=== PATIENT | male | born 1935 | race Caucasian/White ===

== ENCOUNTER → 2017-10-23 | Day surgery (SDC) | payer MEDICARE, BC ==
[~2017-10-23] MED LIST: Brimonidine 0.2% Ophth Soln 5 ML Bottle EYELF SCH; Phenylephrine 2.5% Ophth Soln 2 ML Bot EYELF SCH; Tropicamide 1% Ophth Soln 3 ML Bottle EYELF SCH
[2017-10-23 12:30] VITALS: BP 137/81
== END ==
LOC: JD.SDS 10:38
PROVIDERS: ATTEND Ophthalmology
DX: H26.492 Other secondary cataract, left eye (principal); H21.542 Posterior synechiae (iris), left eye; I10 Essential (primary) hypertension; H02.831 Dermatochalasis of right upper eyelid; H02.834 Dermatochalasis of left upper eyelid; H16.223 Keratoconjunctivitis sicca, not specified as Sjogren's, bilateral; H16.103 Unspecified superficial keratitis, bilateral; Z87.891 Personal history of nicotine dependence; Z79.899 Other long term (current) drug therapy; Z98.41 Cataract extraction status, right eye; Z98.42 Cataract extraction status, left eye; Z96.1 Presence of intraocular lens

== ENCOUNTER 2019-08-27 15:32 | Emergency (ER) | payer MEDICARE, BC ==
[2019-08-27 16:30] VITALS: BP 184/90; PULSE 60
[2019-08-27] MEDS ORDERED: Sodium Chloride 0.9% 10 ML Syringe FLUSH PRN (16:34)
--- NOTE | 2019-08-27 16:36 | EDM.PDOC ---
ED HPI GENERAL MEDICAL PROBLEM - General Chief Complaint: Genitourinary Problem Stated Complaint: BACK PAIN,VOMITING AND NAUSEA Time Seen by Provider: 08/27/19 16:20 Source of Information: Reports: Patient History Limitations: Reports: No Limitations - History of Present Illness INITIAL COMMENTS - FREE TEXT/NARRATIVE: Patient is an 84-year-old male who presents to the emergency department with complaints of acute onset of left-sided flank pain and nausea around 10:00 this morning. He states prior to this time he was feeling well. He describes the pain as sharp. He did not vomit, however he had a couple episodes of dry heaves. He states that while he was in the waiting room, his pain resolved. Denies any obvious blood in his urine. He does have a history of kidney stones , the last being approximately 5 years ago. He denies any fever or chills. He is not having any pain at this time. Denies nausea at this time. 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 He has a follow-up appointment with his oncologist in September. Left Flank Pain Score (Numeric/FACES): 5 - Related Data Allergies Allergy/AdvReac Type Severity Reaction Status Date / Time No Known Allergies Allergy Verified 10/22/17 12:34 Home Meds: Home Meds Irbesartan [Avapro] 1 tab PO DAILY 11/25/13 [History] Tamsulosin HCl 1 cap PO QAM 11/25/13 [History] Acetaminophen/HYDROcodone [[place] 325-5 MG] 1 tab PO Q4H PRN #10 tablet 08/27/19 [Rx] Ondansetron [Zofran ODT] 4 mg PO Q6H PRN #10 tab.dis 08/27/19 [Rx] Past Medical History HEENT History: Reports: Cataract, Impaired Vision Cardiovascular History: Reports: Hypertension Genitourinary History: Reports: BPH, Renal Calculus - Past Surgical History HEENT Surgical History: Reports: Cataract Surgery Social & Family History - Tobacco Use Smoking Status *Q: Former Smoker Used Tobacco, but Quit: Yes Month/Year Tobacco Last Used: 1979 - Recreational Drug Use Recreational Drug Use: No ED ROS GENERAL - Review of Systems Review Of Systems: Comprehensive ROS is negative, except as noted in HPI. ED EXAM, GI/ABD - Physical Exam Exam: See Below Exam Limited By: No Limitations General Appearance: Alert, WD/WN, No Apparent Distress Respiratory/Chest: No Respiratory Distress, Lungs Clear, Normal Breath Sounds, No Accessory Muscle Use, Chest Non-Tender Cardiovascular: Normal Peripheral Pulses, Regular Rate, Rhythm, No Edema, No Gallop, No JVD, No Murmur, No Rub GI/Abdominal Exam: Normal Bowel Sounds, Soft, Non-Tender, No Organomegaly, No Distention, No Abnormal Bruit, No Mass, Pelvis Stable Back Exam: Normal Inspection, Full Range of Motion. No: CVA Tenderness (L), CVA Tenderness (R) Neurological: Alert, Oriented, CN II-XII Intact, Normal Cognition, Normal Gait, Normal Reflexes, No Motor/Sensory Deficits Psychiatric: Normal Affect, Normal Mood Skin Exam: Warm, Dry, Intact, Normal Color, No Rash Course - Vital Signs Last Recorded V/S: Last Vital Signs Temp 97.4 F 08/27/19 16:22 Pulse 60 08/27/19 16:22 Resp 16 08/27/19 16:22 BP 184/90 H 08/27/19 16:22 Pulse Ox 97 08/27/19 16:22 - Orders/Labs/Meds Orders: Active Orders 24 hr Category Date Time Status Peripheral IV Care [RC] . DIRECTED Care 08/27/19 16:34 Active Peripheral IV Insertion Adult [OM.PC] Stat Oth 08/27/19 16:34 Ordered Labs: Laboratory Tests 08/27/19 08/27/19 08/27/19 Range/Units 17:00 17:00 17:59 WBC 31.37 H (4.23-9.07) K/mm3 RBC 5.33 (4.63-6.08) M/mm3 Hgb 16.2 (13.7-17.5) gm/dl Hct 48.0 (40.1-51.0) % MCV 90.1 (79.0-92.2) fl MCH 30.4 (25.7-32.2) pg MCHC 33.8 (32.2-35.5) g/dl RDW Std Deviation 45.6 H (35.1-43.9) fL Plt Count 138 L (163-337) K/mm3 MPV 10.6 (9.4-12.3) fl Neut % (Auto) 24.8 L (34.0-67.9) % Lymph % (Auto) 70.6 H (21.8-53.1) % [place] % (Auto) 3.6 L (5.3-12.2) % Eos % (Auto) 0.5 L (0.8-7.0) Baso % (Auto) 0.2 (0.1-1.2) % Neut # (Auto) 7.77 H (1.78-5.38) K/mm3 Lymph # (Auto) 22.16 H (1.32-3.57) K/mm3 Fleming # (Auto) 1.12 H (0.30-0.82) K/mm3 Eos # (Auto) 0.16 (0.04-0.54) K/mm3 Baso # (Auto) 0.07 (0.01-0.08) K/mm3 Manual Slide Review Abnormal smear Sodium 139 (136-145) mEq/L Potassium 4.4 (3.5-5.1) mEq/L Chloride 103 (98-107) mEq/L Carbon Dioxide 24 (21-32) mEq/L Anion Gap 16.4 H (5-15) BUN 12 (7-18) mg/dL Creatinine 1.6 H (0.7-1.3) mg/dL Est Cr Clr Drug Dosing 39.07 mL/min Estimated GFR (MDRD) 42 (>60) mL/min BUN/Creatinine Ratio 7.5 L (14-18) Glucose 130 H (83-115) mg/dL Calcium 8.8 (8.5-10.1) mg/dL Total Bilirubin 0.7 (0.2-1.0) mg/dL AST 34 (15-37) U/L ALT 48 (16-63) U/L Alkaline Phosphatase 98 (46-116) U/L C-Reactive Protein <0.2 (<1.0) mg/dL Total Protein 6.8 (6.4-8.2) g/dl Albumin 3.9 (3.4-5.0) g/dl Globulin 2.9 gm/dL Albumin/Globulin Ratio 1.3 (1-2) Urine Color Light yellow (Yellow) Urine Appearance Clear (Clear) Urine pH 6.0 (5.0-8.0) Ur Specific [place] 1.020 (1.005-1.030) Urine Protein Negative (Negative) Urine Glucose (UA) Negative (Negative) Urine Ketones Negative (Negative) Urine Occult Blood 1+ H (Negative) Urine Nitrite Negative (Negative) Urine Bilirubin Negative (Negative) Urine Urobilinogen 0.2 (0.2-1.0) Ur Leukocyte Esterase Negative (Negative) Urine RBC 0-5 (0-5) /hpf Urine WBC 0-5 (0-5) /hpf Ur Squamous Epith Cells Not seen (0-5) /hpf Urine Bacteria Occasional (FEW) /hpf Urine Mucus Not seen (FEW) /hpf Meds: Medications Discontinued Medications Generic Name Dose Route Start Last Admin Trade Name Freq PRN Reason Stop Dose Admin Acetaminophen 650 mg 08/27/19 17:56 08/27/19 18:14 Tylenol PO 08/27/19 17:57 650 mg NOW ONE Administration Hydrocodone Bitart/Acetaminophen 1 tab 08/27/19 18:28 08/27/19 18:44 [place] 325-5 Mg PO 08/27/19 18:29 1 tab ONETIME ONE Administration Sodium Chloride 1,000 mls @ 999 mls/hr 08/27/19 16:45 Normal Saline IV ASDIRECTED BRANDY Sodium Chloride 10 ml 08/27/19 16:34 Saline Flush FLUSH ASDIRECTED PRN Keep Vein Open - Re-Assessments/Exams Free Text/Narrative Re-Assessment/Exam: 08/27/19 1900 Hematology was significant for WBC elevated at 31.37 with marked lymphocytosis. This is consistent with his history of CLL. Anion gap slightly elevated at 16.4, creatinine 1.6. Urinalysis was positive for 1+ occult blood. Negative for any signs of infection. Patient did have return of pain when he ambulated to the bathroom. Ordered [place] x1 and Tylenol [address] of the abdomen pelvis showed a 4.7 mm stone in the left ureter, most 2 nonobstructing calculi within the lower pole of each kidney. Discussed these findings with the patient. We will discharge him home with a urine strainer and a prescription for [place] and Zofran. He is already on Flomax. Discharge instructions as documented. Departure - Departure Time of Disposition: 19:07 Disposition: Home, Self-Care 01 Condition: Good Clinical Impression: Kidney stone - Discharge Information *PRESCRIPTION DRUG MONITORING PROGRAM REVIEWED*: Yes *COPY OF PRESCRIPTION DRUG MONITORING REPORT IN PATIENT BRIGIDO: No Prescriptions: Acetaminophen/HYDROcodone [[place] 325-5 MG] 1 tab PO Q4H PRN #10 tablet PRN Reason: Pain Ondansetron [Zofran ODT] 4 mg PO Q6H PRN #10 tab.dis PRN Reason: Nausea Instructions: Kidney Stones, [id number] Referrals: Jennifer Duffy [facility]OVAL SPECIALIST [Primary Care Provider] - Forms: ED Department Discharge Additional Instructions: You were seen in the emergency department today for left-sided flank pain and nausea. Your work-up included blood work, urinalysis, and a CT of your abdomen pelvis. Work-up indicated that you have a 4 mm kidney stone in your left ureter. This is likely the cause of your symptoms. Based on the size of the stone, it is likely that you will be able to pass this without any intervention. You have been provided a strainer for your urine. Use this until you pass the stone. Recommend that you use [id number] Tylenol as needed for the pain. For pain not relieved by this measure, a prescription for [place] has been provided. Do not exceed a total of 4000 mg of Tylenol in 1 day. Be aware that there is 325 mg of Tylenol in each tablet of [place]. Do not drive or operate machinery after taking the [place] as it can be sedating. A prescription for Zofran for nausea has also been provided to you. Use this medication as prescribed. As we discussed, if you do not pass the stone over the course of the next week, I would recommend that you follow-up with your primary care provider to be rescanned to ensure that the stone is not lodged in the ureter. If you should experience any worsening symptoms, please not hesitate to return to the emergency department. Sepsis Event Note - Evaluation Sepsis Screening Result: No Definite Risk - Focused Exam Date Exam was Performed: 08/28/19 Time Exam was Performed: 11:58 - My Orders Last 24 Hours: My Active Orders 08/27/19 16:34 Peripheral IV Care [RC] . DIRECTED Peripheral IV Insertion Adult [OM.PC] Stat - Assessment/Plan Last 24 Hours: My Active Orders 08/27/19 16:34 Peripheral IV Care [RC] . DIRECTED Peripheral IV Insertion Adult [OM.PC] Stat
[2019-08-27] MEDS ORDERED: Sodium Chloride 0.9% 1,000 ML IV SCH (16:45)
[2019-08-27] MEDS ORDERED: Acetaminophen 325 MG Tab PO ONE (17:56)
[2019-08-27] MEDS ORDERED: Acetaminophen/HYDROcodone 325-5 MG Tab PO ONE (18:28)
--- NOTE | 2019-08-27 22:26 | CT ---
CT abdomen and pelvis Technique: Multiple axial sections were obtained from above the dome of the diaphragm inferiorly through the pubic symphysis. Intravenous and oral contrast not utilized. Study has been performed as a ureteral stone protocol. Findings: Proximal left ureteral stone is seen measuring approximately 4.7 mm. This causes proximal dilatation of the left kidney collecting system. No other abnormal calcifications are seen along the course of the ureters. Small nonobstructing calculus is noted within the lower pole of both kidneys. Several cysts are seen within the left kidney. Visualized lung bases show nothing acute. Noncontrast appearance of the liver and spleen shows no discrete abnormality. Adrenal glands show no nodule. Pancreas shows no abnormality. Gallbladder contains no calcified gallstones. Aorta shows atherosclerotic change which continues into the iliac vessels. No retroperitoneal adenopathy or mesenteric abnormalities are seen. No pelvic mass or adenopathy is seen. Appendix cannot be visualized. No free fluid or inflammatory change is appreciated. Bone window settings were reviewed which shows no acute osseous finding. 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 Impression: 1. 4.7 mm obstructing stone within the proximal left ureter. 2. 2 small nonobstructing calculi within the lower pole of each kidney. 3. Other findings believed to be incidental as well as nonacute as noted above. Diagnostic code #3 This report was dictated in MDT
== END 2019-08-27 19:20 | disposition home or self-care (01) ==
LOC: JD.ED 15:32
DX: N20.2 Calculus of kidney with calculus of ureter (principal); I10 Essential (primary) hypertension; Z87.891 Personal history of nicotine dependence; Z79.899 Other long term (current) drug therapy
CPT/HCPCS: 36415; 74176; 80053; 81001; 85025; 86140; 99284; A9270; 99283

== ENCOUNTER 2019-08-31 10:09 | Emergency (ER) | payer MEDICARE, BC ==
[2019-08-31 10:23] VITALS: BP 149/83; PULSE 55
[2019-08-31] MEDS ORDERED: fentaNYL 100 MCG/2 ML SDV IVPUSH ONE ×2 (10:44→12:32)
[2019-08-31] MEDS ORDERED: Ondansetron 4 MG/2 ML SDV IVPUSH ONE (10:45)
[2019-08-31] MEDS ORDERED: Acetaminophen/HYDROcodone 325-5 MG Tab PO ONE ×2 (10:45→10:46)
--- NOTE | 2019-08-31 10:48 | EDM.PDOC ---
ED HPI GENERAL MEDICAL PROBLEM - General Chief Complaint: Genitourinary Problem Stated Complaint: KIDNEY STONE Time Seen by Provider: 08/31/19 10:35 - History of Present Illness INITIAL COMMENTS - FREE TEXT/NARRATIVE: 84-year-old male presents the emergency room with significant discomfort thought to be related to his kidney stone. Patient was seen here 4 days ago diagnosed with a 4.7 mm proximal left-sided kidney stone. Patient is having significant discomfort with this. He was discharged on hydrocodone he was not started on Flomax however he is already taking Flomax. He was given [place] for discomfort 08/09/2024 1 every 4 hours as needed. His regular provider has given him some more 1 every 6 hours and it is just not working the patient has a significant history of CLL he has follow-up with his oncologist on September 07. Denies any fevers or chills he has no nausea or vomiting but he does not have any appetite he has not eaten much he says he is drinking enough fluids. Left Flank Pain Score (Numeric/FACES): 10 - Related Data Allergies Allergy/AdvReac Type Severity Reaction Status Date / Time No Known Allergies Allergy Verified 08/31/19 10:23 Home Meds: Home Meds Irbesartan [Avapro] 150 mg PO DAILY 11/25/13 [History] Tamsulosin HCl 0.4 mg PO QAM 11/25/13 [History] Acetaminophen/HYDROcodone [[place] 325-5 MG] 1 tab PO Q4H PRN #10 tablet 08/27/19 [Rx] Ondansetron [Zofran ODT] 4 mg PO Q6H PRN #10 tab.dis 08/27/19 [Rx] Past Medical History HEENT History: Reports: Cataract, Impaired Vision Cardiovascular History: Reports: Hypertension Genitourinary History: Reports: BPH, Renal Calculus - Past Surgical History HEENT Surgical History: Reports: Cataract Surgery Social & Family History - Tobacco Use Smoking Status *Q: Never Smoker - Caffeine Use Caffeine Use: Reports: Coffee - Recreational Drug Use Recreational Drug Use: No ED ROS GENERAL - Review of Systems Review Of Systems: See Below Constitutional: Reports: Diaphoresis (He is a little sweaty but he says he is in this way all the time). Denies: Fever, Chills, Night Sweats HEENT: Reports: No Symptoms Respiratory: Reports: No Symptoms Cardiovascular: Reports: No Symptoms Endocrine: Reports: No Symptoms GI/Abdominal: Reports: No Symptoms : Reports: Flank Pain. Denies: Discharge, Dysuria Musculoskeletal: Reports: No Symptoms Skin: Reports: No Symptoms Neurological: Reports: No Symptoms ED EXAM, RENAL/ - Physical Exam Exam: See Below Exam Limited By: No Limitations General Appearance: Alert, No Apparent Distress, Other (Rates his pain at a 10) Head: Atraumatic, Normocephalic Neck: Normal Inspection, Supple, Non-Tender, Full Range of Motion Respiratory/Chest: No Respiratory Distress, Lungs Clear, Normal Breath Sounds Cardiovascular: Regular Rate, Rhythm, No Edema, No Murmur GI/Abdominal: Normal Bowel Sounds, Soft, Other (Is not worsened with palpation) . No: Guarding, Rigid, Rebound Back Exam: Normal Inspection. No: CVA Tenderness (L), CVA Tenderness (R) Extremities: Normal Inspection, No Pedal Edema Course - Vital Signs Last Recorded V/S: Last Vital Signs Temp 36.7 C 08/31/19 10:18 Pulse 55 L 08/31/19 10:18 Resp 14 08/31/19 10:18 BP 149/83 H 08/31/19 10:18 Pulse Ox 94 L 08/31/19 10:18 - Orders/Labs/Meds Orders: Active Orders 24 hr Category Date Time Status UA W/SUSAN RFLX IF INDICATED [URIN] Stat Lab 08/31/19 10:43 Ordered Lactated Ringers [Ringers, Lactated] 1,000 ml Med 08/31/19 11:00 Active IV ASDIRECTED Lactated Ringers [Ringers, Lactated] 1,000 ml Med 08/31/19 11:15 Active IV ASDIRECTED fentaNYL [Sublimaze] Med 08/31/19 12:32 Once 50 mcg IVPUSH ONETIME ONE Medication Orders Lactated Ringer's (Ringers, Lactated) 1,000 mls @ 150 mls/hr IV ASDIRECTED BRANDY Last Admin: 08/31/19 11:08 Dose: 150 mls/hr Lactated Ringer's (Ringers, Lactated) 1,000 mls @ 150 mls/hr IV ASDIRECTED BRANDY Labs: Laboratory Tests 08/31/19 08/31/19 Range/Units 10:40 10:40 WBC 28.03 H (4.23-9.07) K/mm3 RBC 4.98 (4.63-6.08) M/mm3 Hgb 15.2 (13.7-17.5) gm/dl Hct 45.3 (40.1-51.0) % MCV 91.0 (79.0-92.2) fl MCH 30.5 (25.7-32.2) pg MCHC 33.6 (32.2-35.5) g/dl RDW Std Deviation 46.1 H (35.1-43.9) fL Plt Count 151 L (163-337) K/mm3 MPV 10.6 (9.4-12.3) fl Neutrophils % (Manual) 34 L (40-60) % Band Neutrophils % 0 (0-10) % Lymphocytes % (Manual) 59 H (20-40) % Atypical Lymphs % 0 % Monocytes % (Manual) 7 (2-10) % Eosinophils % (Manual) 0 L (0.8-7.0) % Basophils % (Manual) 0 L (0.2-1.2) Platelet Estimate Adequate Plt Morphology Comment RBC Morph Comment Normal Sodium 138 (136-145) mEq/L Potassium 4.4 (3.5-5.1) mEq/L Chloride 102 (98-107) mEq/L Carbon Dioxide 25 (21-32) mEq/L Anion Gap 15.4 H (5-15) BUN 23 H (7-18) mg/dL Creatinine 2.0 H (0.7-1.3) mg/dL Est Cr Clr Drug Dosing 31.26 mL/min Estimated GFR (MDRD) 32 (>60) mL/min BUN/Creatinine Ratio 11.5 L (14-18) Glucose 120 H (83-115) mg/dL Calcium 8.7 (8.5-10.1) mg/dL Meds: Medications Generic Name Dose Route Start Last Admin Trade Name Freq PRN Reason Stop Dose Admin Lactated Ringer's 1,000 mls @ 150 mls/hr 08/31/19 11:00 08/31/19 11:08 Ringers, Lactated IV 150 mls/hr ASDIRECTED BRANDY Administration Lactated Ringer's 1,000 mls @ 150 mls/hr 08/31/19 11:15 Ringers, Lactated IV ASDIRECTED BRANDY Discontinued Medications Generic Name Dose Route Start Last Admin Trade Name Jose PRN Reason Stop Dose Admin Hydrocodone Bitart/Acetaminophen 1 tab 08/31/19 10:45 08/31/19 10:53 [place] 325-5 Mg PO 08/31/19 10:46 1 tab ONETIME ONE Administration Hydrocodone Bitart/Acetaminophen 1 tab 08/31/19 10:46 08/31/19 11:53 [place] 325-5 Mg PO 08/31/19 10:47 1 tab ONETIME ONE Administration Fentanyl 50 mcg 08/31/19 10:44 08/31/19 10:57 Sublimaze IVPUSH 08/31/19 10:45 50 mcg ONETIME ONE Administration Ondansetron HCl 4 mg 08/31/19 10:45 08/31/19 10:55 Zofran IVPUSH 08/31/19 10:46 4 mg ONETIME ONE Administration - Re-Assessments/Exams Free Text/Narrative Re-Assessment/Exam: 08/31/19 12:33 The patient was given 50 mcg of fentanyl and shortly after this received [place] and this was followed up by a second [place] after the first [place] he is feeling pretty good but shortly thereafter his pain returned he was given a second [place] seemed to be doing okay but now again the pain is returned we will give him another 50 mcg of fentanyl I have looked at his labs his creatinine is up to 2. This is little concerning the patient has not been able specimen as of this time. Will discuss with urology. 08/31/19 13:[address] Abernathy, urologist at [facility] in [place]. He recommends transfer to [facility] to the hospitalist service continue IV fluids and pain medication as needed keep n.p.o. the patient last had some cranberry juice around 7:00 this morning and then his sipped water infrequently during the day. The patient's creatinine is now up to 2 he has a 4.7 mm stone that was proximal on the . Suboptimal pain control and elevating creatinine. The case was discussed with Dr. Ybarra, the hospitalist at [facility] she is kind enough to accept the patient in transfer we are still awaiting UA. The labs we do have CBC history of CLL and chemistries reviewed reviewed with Dr. Ybarra. Urinalysis is pending, patient will be transferred by [facility] Departure - Departure Time of Disposition: 12:48 Disposition: DC/Tfer to [facility] Clinical Impression: Left nephrolithiasis, Worsening renal function, Dehydration - Discharge Information Referrals: Jennifer Duffy NP [Primary Care Provider] - Forms: ED Department Discharge Sepsis Event Note - Evaluation Sepsis Screening Result: No Definite Risk - Focused Exam Vital Signs: Vital Signs Temp Pulse Resp BP Pulse Ox 08/31/19 10:18 36.7 C 55 L 14 149/83 H 94 L Date Exam was Performed: 08/31/19 Time Exam was Performed: 12:33 - My Orders Last 24 Hours: My Active Orders 08/31/19 10:43 UA W/SUSAN RFLX IF INDICATED [URIN] Stat 08/31/19 11:00 Lactated Ringers [Ringers, Lactated] 1,000 ml IV ASDIRECTED 08/31/19 11:15 Lactated Ringers [Ringers, Lactated] 1,000 ml IV ASDIRECTED 08/31/19 12:32 fentaNYL [Sublimaze] 50 mcg IVPUSH ONETIME ONE - Assessment/Plan Last 24 Hours: My Active Orders 08/31/19 10:43 UA W/SUSAN RFLX IF INDICATED [URIN] Stat 08/31/19 11:00 Lactated Ringers [Ringers, Lactated] 1,000 ml IV ASDIRECTED 08/31/19 11:15 Lactated Ringers [Ringers, Lactated] 1,000 ml IV ASDIRECTED 08/31/19 12:32 fentaNYL [Sublimaze] 50 mcg IVPUSH ONETIME ONE
[2019-08-31] MEDS ORDERED: Lactated Ringers 1,000 ML IV SCH ×2 (11:00→11:15)
== END 2019-08-31 13:20 ==
LOC: JD.ED 10:09
DX: N20.0 Calculus of kidney (principal); E86.0 Dehydration; I10 Essential (primary) hypertension; N40.0 Benign prostatic hyperplasia without lower urinary tract symptoms; Z79.899 Other long term (current) drug therapy
CPT/HCPCS: 36415; 80048; 81001; 85007; 85027; 96361; 96374; 96375; 96376; 99285; A9270; J2405; J3010; J7120

== ENCOUNTER 2019-09-15 18:14 | Inpatient (IN) | payer MEDICARE, BC ==
[2019-09-15] MEDS ORDERED: Sodium Chloride 0.9% 1,000 ML IV SCH (19:30)
[2019-09-15] MEDS ORDERED: cefTRIAXone 1 GM in Sodium Chloride 0.9% 100 ML IV ONE (19:35)
--- NOTE | 2019-09-15 20:30 | CR ---
Chest: Portable upright view of the chest was obtained. Comparison: No prior abdominal imaging. Heart size is normal. Tortuous thoracic aorta is seen. Lungs show no acute parenchymal change. Bony structures are grossly intact. Impression: 1. Nothing acute is seen on portable chest x-ray. Diagnostic code #1 This report was dictated in MDT
--- NOTE | 2019-09-15 20:33 | EDM.PDOC ---
ED HPI GENERAL MEDICAL PROBLEM - General Chief Complaint: General Stated Complaint: NOT EATING,WEAK,FALLING Time Seen by Provider: 09/15/19 19:13 Source of Information: Reports: Patient, Family History Limitations: Reports: No Limitations - History of Present Illness INITIAL COMMENTS - FREE TEXT/NARRATIVE: TRIAGE NOTE -- patient c/o lack of appetitie, fever, dizziness, and weakness today. states he had a uretal stent placed on for kidney stone. states pain from stones are gone, but now feels weak. skin is hot to touch As noted the patient has done reasonably well after his procedure. Was brought in today for vague symptoms as noted above. Risk factors consist of presence of ureteral stent. There is been no flank pain however. 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 No specific treatment or other measure to moderate symptoms prior to arrival. - Related Data Allergies Allergy/AdvReac Type Severity Reaction Status Date / Time No Known Allergies Allergy Verified 09/15/19 18:53 Home Meds: Home Meds Irbesartan [Avapro] 150 mg PO DAILY 11/25/13 [History] Tamsulosin HCl 0.4 mg PO QAM 11/25/13 [History] Ondansetron [Zofran ODT] 4 mg PO Q6H PRN #10 tab.dis 08/27/19 [Rx] Past Medical History HEENT History: Reports: Cataract, Impaired Vision Cardiovascular History: Reports: Hypertension Genitourinary History: Reports: BPH, Renal Calculus - Past Surgical History HEENT Surgical History: Reports: Cataract Surgery Social & Family History - Tobacco Use Smoking Status *Q: Never Smoker - Caffeine Use Caffeine Use: Reports: Coffee - Recreational Drug Use Recreational Drug Use: No ED ROS GENERAL - Review of Systems Review Of Systems: Comprehensive ROS is negative, except as noted in HPI. ED EXAM, GENERAL - Physical Exam Exam: See Below Exam Limited By: No Limitations General Appearance: Alert, WD/WN, No Apparent Distress Eye Exam: Bilateral Eye: EOMI, PERRL Ears: Normal External Exam Nose: Normal Inspection Throat/Mouth: Normal Inspection Head: Atraumatic, Normocephalic Neck: Normal Inspection, Supple Respiratory/Chest: No Respiratory Distress, Lungs Clear (Except for mild inspiratory crackles in the bases) Cardiovascular: Regular Rate, Rhythm GI/Abdominal: Soft, Non-Tender Back Exam: Normal Inspection Extremities: Normal Inspection, Non-Tender Neurological: Alert, Oriented, Normal Cognition, No Motor/Sensory Deficits Psychiatric: Normal Affect, Normal Mood Skin Exam: Warm, Dry Course - Vital Signs Last Recorded V/S: Last Vital Signs Temp 38.2 C H 09/15/19 18:49 Pulse 86 09/15/19 18:49 Resp 16 09/15/19 18:49 BP 157/76 H 09/15/19 18:49 Pulse Ox 92 L 09/15/19 18:49 - Orders/Labs/Meds Orders: Active Orders 24 hr Category Date Time Status ABG [RT Arterial Blood Gases, ABG] [] Click to Edit Care 09/15/19 19:19 Active EKG Documentation Completion [] STAT Care 09/15/19 19:17 Active Oxygen Therapy, ED [] ASDIRECTED Care 09/15/19 19:32 Active CULTURE BLOOD [BC] Stat Lab 09/15/19 19:40 Received CULTURE BLOOD [BC] Stat Lab 09/15/19 19:50 Received UA RFX SUSAN AND CULT IF INDIC [URIN] Stat Lab 09/15/19 19:41 Received Sodium Chloride 0.9% [Normal Saline] 1,000 ml Med 09/15/19 19:30 Active IV ASDIRECTED Blood Culture x2 Reflex Set [OM.PC] Stat Oth 09/15/19 19:17 Ordered Medication Orders Sodium Chloride (Normal Saline) 1,000 mls @ 150 mls/hr IV ASDIRECTED BRANDY Last Admin: 09/15/19 19:37 Dose: 150 mls/hr Labs: Laboratory Tests 09/15/19 09/15/19 09/15/19 Range/Units 18:50 19:30 19:30 WBC 32.41 H (4.23-9.07) K/mm3 RBC 4.74 (4.63-6.08) M/mm3 Hgb 14.5 (13.7-17.5) gm/dl Hct 43.3 (40.1-51.0) % MCV 91.4 (79.0-92.2) fl MCH 30.6 (25.7-32.2) pg MCHC 33.5 (32.2-35.5) g/dl RDW Std Deviation 46.5 H (35.1-43.9) fL Plt Count 218 (163-337) K/mm3 MPV 10.0 (9.4-12.3) fl Neutrophils % (Manual) 35 L (40-60) % Band Neutrophils % 0 (0-10) % Lymphocytes % (Manual) 60 H (20-40) % Atypical Lymphs % 0 % Monocytes % (Manual) 5 (2-10) % Eosinophils % (Manual) 0 L (0.8-7.0) % Basophils % (Manual) 0 L (0.2-1.2) Platelet Estimate Adequate Plt Morphology Comment Normal RBC Morph Comment Normal PT 11.1 (9.7-12.0) SECONDS INR 1.02 Puncture Site ABG pH (7.35-7.45) ABG pCO2 (35.0-45.0) mmHg ABG pO2 (80.0-100.0) mmHg ABG HCO3 (22.0-26.0) meq/L ABG O2 Saturation (96.0-97.0) % ABG Base Excess (-2-2.0) A-a Gradient mmHg O2 Delivery Device Oxygen Flow Rate FiO2 (21.00-100.00) % Sodium (136-145) mEq/L Potassium (3.5-5.1) mEq/L Chloride (98-107) mEq/L Carbon Dioxide (21-32) mEq/L Anion Gap (5-15) BUN (7-18) mg/dL Creatinine (0.7-1.3) mg/dL Est Cr Clr Drug Dosing mL/min Estimated GFR (MDRD) (>60) mL/min BUN/Creatinine Ratio (14-18) Glucose (83-115) mg/dL Lactic Acid (0.4-2.0) mmol/L Calcium (8.5-10.1) mg/dL Magnesium (1.8-2.4) mg/dl Total Bilirubin (0.2-1.0) mg/dL AST (15-37) U/L ALT (16-63) U/L Alkaline Phosphatase (46-116) U/L Troponin I (0.00-0.056) ng/mL Total Protein (6.4-8.2) g/dl Albumin (3.4-5.0) g/dl Globulin gm/dL Albumin/Globulin Ratio (1-2) Urine Color Yellow (Yellow) Urine Appearance Slt cloudy H (Clear) Urine pH 5.5 (5.0-8.0) Ur Specific [place] 1.025 (1.005-1.030) Urine Protein 2+ H (Negative) Urine Glucose (UA) Negative (Negative) Urine Ketones Negative (Negative) Urine Occult Blood 2+ H (Negative) Urine Nitrite Negative (Negative) Urine Bilirubin Negative (Negative) Urine Urobilinogen 0.2 (0.2-1.0) Ur Leukocyte Esterase 1+ H (Negative) Urine RBC 10-20 H (0-5) /hpf Urine WBC 40-50 H (0-5) /hpf Ur Squamous Epith Cells 10-20 H (0-5) /hpf Amorphous Sediment Few H (NOT SEEN) /hpf Urine Bacteria Moderate H (FEW) /hpf Urine Mucus Few (FEW) /hpf 09/15/19 09/15/19 09/15/19 Range/Units 19:30 19:30 19:40 WBC (4.23-9.07) K/mm3 RBC (4.63-6.08) M/mm3 Hgb (13.7-17.5) gm/dl Hct (40.1-51.0) % MCV (79.0-92.2) fl MCH (25.7-32.2) pg MCHC (32.2-35.5) g/dl RDW Std Deviation (35.1-43.9) fL Plt Count (163-337) K/mm3 MPV (9.4-12.3) fl Neutrophils % (Manual) (40-60) % Band Neutrophils % (0-10) % Lymphocytes % (Manual) (20-40) % Atypical Lymphs % % Monocytes % (Manual) (2-10) % Eosinophils % (Manual) (0.8-7.0) % Basophils % (Manual) (0.2-1.2) Platelet Estimate Plt Morphology Comment RBC Morph Comment PT (9.7-12.0) SECONDS INR Puncture Site Lt radial ABG pH 7.48 H (7.35-7.45) ABG pCO2 31.0 L (35.0-45.0) mmHg ABG pO2 77.0 L (80.0-100.0) mmHg ABG HCO3 23.0 (22.0-26.0) meq/L ABG O2 Saturation 95.3 L (96.0-97.0) % ABG Base Excess 0.7 (-2-2.0) A-a Gradient 34 mmHg O2 Delivery Device Room air Oxygen Flow Rate 0.0 FiO2 21.00 (21.00-100.00) % Sodium 135 L (136-145) mEq/L Potassium 3.9 (3.5-5.1) mEq/L Chloride 100 (98-107) mEq/L Carbon Dioxide 24 (21-32) mEq/L Anion Gap 14.9 (5-15) BUN 22 H (7-18) mg/dL Creatinine 1.8 H (0.7-1.3) mg/dL Est Cr Clr Drug Dosing 34.73 mL/min Estimated GFR (MDRD) 36 (>60) mL/min BUN/Creatinine Ratio 12.2 L (14-18) Glucose 161 H (83-115) mg/dL Lactic Acid 0.9 (0.4-2.0) mmol/L Calcium 8.3 L (8.5-10.1) mg/dL Magnesium 1.9 (1.8-2.4) mg/dl Total Bilirubin 0.9 (0.2-1.0) mg/dL AST 19 (15-37) U/L ALT 23 (16-63) U/L Alkaline Phosphatase 90 (46-116) U/L Troponin I < 0.017 (0.00-0.056) ng/mL Total Protein 6.7 (6.4-8.2) g/dl Albumin 3.3 L (3.4-5.0) g/dl Globulin 3.4 gm/dL Albumin/Globulin Ratio 1.0 (1-2) Urine Color (Yellow) Urine Appearance (Clear) Urine pH (5.0-8.0) Ur Specific [place] (1.005-1.030) Urine Protein (Negative) Urine Glucose (UA) (Negative) Urine Ketones (Negative) Urine Occult Blood (Negative) Urine Nitrite (Negative) Urine Bilirubin (Negative) Urine Urobilinogen (0.2-1.0) Ur Leukocyte Esterase (Negative) Urine RBC (0-5) /hpf Urine WBC (0-5) /hpf Ur Squamous Epith Cells (0-5) /hpf Amorphous Sediment (NOT SEEN) /hpf Urine Bacteria (FEW) /hpf Urine Mucus (FEW) /hpf Meds: Medications Generic Name Dose Route Start Last Admin Trade Name Jose PRN Reason Stop Dose Admin Sodium Chloride 1,000 mls @ 150 mls/hr 09/15/19 19:30 09/15/19 19:37 Normal Saline IV 150 mls/hr ASDIRECTED BRANDY Administration Discontinued Medications Generic Name Dose Route Start Last Admin Trade Name Jose PRN Reason Stop Dose Admin Ceftriaxone Sodium 1 gm/ 100 mls @ 200 mls/hr 09/15/19 19:35 09/15/19 19:45 Sodium Chloride IV 09/15/19 20:04 200 mls/hr ONETIME ONE Administration Gentamicin Sulfate 100 mg/ 102.5 mls @ 200 mls/hr 09/15/19 19:54 09/15/19 20: 25 Sodium Chloride IV 09/15/19 20:24 200 mls/hr ONETIME ONE Administration - Re-Assessments/Exams Free Text/Narrative Re-Assessment/Exam: 09/15/19 21:40 The patient has evidence of urinary tract infection. He has an indwelling stent from a kidney stone placed on August 31. He has a high white count but this is most likely related to his CLL and he may actually be baseline in this respect. Discussed with Dr. Sapp who will admit the patient here with the approval of Dr. Cornejo urologist partner of Dr. Abernathy who placed the patient 's stent. It is okay with him to admit here and that is being done. Discussed with patient and daughter who approved the plan. Departure - Departure Time of Disposition: 21:42 Disposition: Admitted As Inpatient 68 Condition: Fair Clinical Impression: Status post placement of ureteral stent Urinary tract infection Qualifiers: Urinary tract infection type: site unspecified Hematuria presence: with hematuria Qualified Code(s): N39.0 - Urinary tract infection, site not specified ; R31.9 - Hematuria, unspecified - Discharge Information Referrals: Jennifer Duffy NP [Primary Care Provider] - Forms: ED Department Discharge Sepsis Event Note - Evaluation Sepsis Screening Result: No Definite Risk - Focused Exam Vital Signs: Vital Signs Temp Pulse Resp BP Pulse Ox 09/15/19 18:49 38.2 C H 86 16 157/76 H 92 L Date Exam was Performed: 09/15/19 Time Exam was Performed: 21:40 - My Orders Last 24 Hours: My Active Orders 09/15/19 19:17 EKG Documentation Completion [RC] STAT Blood Culture x2 Reflex Set [OM.PC] Stat 09/15/19 19:19 ABG [RT Arterial Blood Gases, ABG] [RC] Click to Edit 09/15/19 19:30 Sodium Chloride 0.9% [Normal Saline] 1,000 ml IV ASDIRECTED 09/15/19 19:32 Oxygen Therapy, ED [RC] ASDIRECTED 09/15/19 19:40 CULTURE BLOOD [BC] Stat 09/15/19 19:41 UA RFX SUSAN AND CULT IF INDIC [URIN] Stat 09/15/19 19:50 CULTURE BLOOD [BC] Stat - Assessment/Plan Last 24 Hours: My Active Orders 09/15/19 19:17 EKG Documentation Completion [RC] STAT Blood Culture x2 Reflex Set [OM.PC] Stat 09/15/19 19:19 ABG [RT Arterial Blood Gases, ABG] [RC] Click to Edit 09/15/19 19:30 Sodium Chloride 0.9% [Normal Saline] 1,000 ml IV ASDIRECTED 09/15/19 19:32 Oxygen Therapy, ED [RC] ASDIRECTED 09/15/19 19:40 CULTURE BLOOD [BC] Stat 09/15/19 19:41 UA RFX SUSAN AND CULT IF INDIC [URIN] Stat 09/15/19 19:50 CULTURE BLOOD [BC] Stat
[2019-09-15] MEDS ORDERED: Ondansetron 4 MG/2 ML SDV IV PRN (22:41)
[2019-09-15] MEDS ORDERED: Acetaminophen/HYDROcodone 325-5 MG Tab PO PRN (22:41)
[2019-09-15] MEDS ORDERED: Acetaminophen 325 MG Tab PO PRN (22:41)
--- NOTE | 2019-09-15 22:49 | PCM.HP.2 ---
H&P History of Present Illness - General Date of Service: 09/15/19 - History of Present Illness Initial Comments - Free Text/Narative: 84-year-old male who had a ureteral stent placed for kidney stones on presents to the emergency department after 3 days of feeling weak. Patient states that for the last 3 days has had decreased appetite, fever, dizziness, and weakness. Apparently after his procedure for stent placing he had extreme urinary pain and bladder spasm. 2 weeks ago he had a urinary catheter placed and it was removed on September 07. A few days afterward patient started having the above symptoms. Patient does have CLL and is seeing an oncologist. He is on antihypertensives but has not been taking it lately because his blood pressure has been good. On presentation to the emergency department he did have a temperature of 108 degrees, but heart rate was 86 and respiratory rate was 16 with a blood pressure of 157/76 and a pulse ox of 90%. Chest x-ray was negative. White count was 32.4 with 60% lymphocytes and no bands, consistent with his CLL , UA 40-50 WBCs negative nitrites, 10-20 RBCs, 10-20 epithelial cells, ABG: pH 7.48, PCO2 of 31, PO2 of 77, bicarb 23, O2 sats 95% on room air. This is consistent with respiratory alkalosis. CMP showed normal electrolytes except a slightly low sodium of 135, decreased kidney function with estimated GFR of 36, creatinine of 1.8, BUN 22. Liver functions were normal. Troponin less than 0.017. Lactic acid 0.9. Patient was given Rocephin and gentamicin and urology at [facility] in [place] was consulted by phone. Recommendations were to admit him to our facility and if he gets worse transfer him. Hospitalist service was then called for admission. - Related Data Allergies/Adverse Reactions: Allergies Allergy/AdvReac Type Severity Reaction Status Date / Time No Known Allergies Allergy Verified 09/15/19 18:53 Home Medications: Home Meds Irbesartan [Avapro] 150 mg PO DAILY 11/25/13 [History] Tamsulosin HCl 0.4 mg PO QAM 11/25/13 [History] Ondansetron [Zofran ODT] 4 mg PO Q6H PRN #10 tab.dis 08/27/19 [Rx] Past Medical History HEENT History: Reports: Cataract, Impaired Vision Cardiovascular History: Reports: Hypertension Genitourinary History: Reports: BPH, Renal Calculus - Past Surgical History HEENT Surgical History: Reports: Cataract Surgery Social & Family History - Tobacco Use Smoking Status *Q: Never Smoker - Caffeine Use Caffeine Use: Reports: Coffee - Recreational Drug Use Recreational Drug Use: No H&P Review of Systems - Review of Systems: Review Of Systems: Comprehensive ROS is negative, except as noted in HPI. Exam - Exam Exam: See Below - Vital Signs Vital Signs: Last Vital Signs Temp 100.7 F H 09/15/19 18:49 Pulse 86 09/15/19 18:49 Resp 16 09/15/19 18:49 BP 157/76 H 09/15/19 18:49 Pulse Ox 92 L 09/15/19 18:49 Weight: 194 lb - Exam Quality Assessment: No: Supplemental Oxygen General: Alert, Oriented, 4 HEENT: Conjunctiva Clear, Hearing Intact, Mucosa Moist & [place]. No: Pupils Equal (Left eye is fixed and dilated. Right eye is reactive. Patient states he had a procedure on the left eye.) Neck: Supple Lungs: Clear to Auscultation, Normal Respiratory Effort Cardiovascular: Regular Rate, Regular Rhythm GI/Abdominal Exam: Normal Bowel Sounds, Soft, Non-Tender, No Organomegaly, No Distention, No Abnormal Bruit, No Mass Back Exam: Normal Inspection Extremities: Normal Inspection, Normal Range of Motion, Non-Tender, No Pedal Edema, Normal Capillary Refill Skin: Warm, Dry, Intact Neuro Extensive - Mental Status: Alert, Oriented x3, Normal Mood/Affect, Normal Cognition, Memory Intact Psychiatric: Alert, Normal Affect, Normal Mood - Patient Data Lab Results Last 24 hrs: Laboratory Results - last 24 hr 09/15/19 09/15/19 09/15/19 Range/Units 18:50 19:30 19:30 WBC 32.41 H (4.23-9.07) K/mm3 RBC 4.74 (4.63-6.08) M/mm3 Hgb 14.5 (13.7-17.5) gm/dl Hct 43.3 (40.1-51.0) % MCV 91.4 (79.0-92.2) fl MCH 30.6 (25.7-32.2) pg MCHC 33.5 (32.2-35.5) g/dl RDW Std Deviation 46.5 H (35.1-43.9) fL Plt Count 218 (163-337) K/mm3 MPV 10.0 (9.4-12.3) fl Neutrophils % (Manual) 35 L (40-60) % Band Neutrophils % 0 (0-10) % Lymphocytes % (Manual) 60 H (20-40) % Atypical Lymphs % 0 % Monocytes % (Manual) 5 (2-10) % Eosinophils % (Manual) 0 L (0.8-7.0) % Basophils % (Manual) 0 L (0.2-1.2) Platelet Estimate Adequate Plt Morphology Comment Normal RBC Morph Comment Normal PT 11.1 (9.7-12.0) SECONDS INR 1.02 Puncture Site ABG pH (7.35-7.45) ABG pCO2 (35.0-45.0) mmHg ABG pO2 (80.0-100.0) mmHg ABG HCO3 (22.0-26.0) meq/L ABG O2 Saturation (96.0-97.0) % ABG Base Excess (-2-2.0) A-a Gradient mmHg O2 Delivery Device Oxygen Flow Rate FiO2 (21.00-100.00) % Sodium (136-145) mEq/L Potassium (3.5-5.1) mEq/L Chloride (98-107) mEq/L Carbon Dioxide (21-32) mEq/L Anion Gap (5-15) BUN (7-18) mg/dL Creatinine (0.7-1.3) mg/dL Est Cr Clr Drug Dosing mL/min Estimated GFR (MDRD) (>60) mL/min BUN/Creatinine Ratio (14-18) Glucose (83-115) mg/dL Lactic Acid (0.4-2.0) mmol/L Calcium (8.5-10.1) mg/dL Magnesium (1.8-2.4) mg/dl Total Bilirubin (0.2-1.0) mg/dL AST (15-37) U/L ALT (16-63) U/L Alkaline Phosphatase (46-116) U/L Troponin I (0.00-0.056) ng/mL Total Protein (6.4-8.2) g/dl Albumin (3.4-5.0) g/dl Globulin gm/dL Albumin/Globulin Ratio (1-2) Urine Color Yellow (Yellow) Urine Appearance Slt cloudy H (Clear) Urine pH 5.5 (5.0-8.0) Ur Specific [place] 1.025 (1.005-1.030) Urine Protein 2+ H (Negative) Urine Glucose (UA) Negative (Negative) Urine Ketones Negative (Negative) Urine Occult Blood 2+ H (Negative) Urine Nitrite Negative (Negative) Urine Bilirubin Negative (Negative) Urine Urobilinogen 0.2 (0.2-1.0) Ur Leukocyte Esterase 1+ H (Negative) Urine RBC 10-20 H (0-5) /hpf Urine WBC 40-50 H (0-5) /hpf Ur Squamous Epith Cells 10-20 H (0-5) /hpf Amorphous Sediment Few H (NOT SEEN) /hpf Urine Bacteria Moderate H (FEW) /hpf Urine Mucus Few (FEW) /hpf 09/15/19 09/15/19 09/15/19 Range/Units 19:30 19:30 19:40 WBC (4.23-9.07) K/mm3 RBC (4.63-6.08) M/mm3 Hgb (13.7-17.5) gm/dl Hct (40.1-51.0) % MCV (79.0-92.2) fl MCH (25.7-32.2) pg MCHC (32.2-35.5) g/dl RDW Std Deviation (35.1-43.9) fL Plt Count (163-337) K/mm3 MPV (9.4-12.3) fl Neutrophils % (Manual) (40-60) % Band Neutrophils % (0-10) % Lymphocytes % (Manual) (20-40) % Atypical Lymphs % % Monocytes % (Manual) (2-10) % Eosinophils % (Manual) (0.8-7.0) % Basophils % (Manual) (0.2-1.2) Platelet Estimate Plt Morphology Comment RBC Morph Comment PT (9.7-12.0) SECONDS INR Puncture Site Lt radial ABG pH 7.48 H (7.35-7.45) ABG pCO2 31.0 L (35.0-45.0) mmHg ABG pO2 77.0 L (80.0-100.0) mmHg ABG HCO3 23.0 (22.0-26.0) meq/L ABG O2 Saturation 95.3 L (96.0-97.0) % ABG Base Excess 0.7 (-2-2.0) A-a Gradient 34 mmHg O2 Delivery Device Room air Oxygen Flow Rate 0.0 FiO2 21.00 (21.00-100.00) % Sodium 135 L (136-145) mEq/L Potassium 3.9 (3.5-5.1) mEq/L Chloride 100 (98-107) mEq/L Carbon Dioxide 24 (21-32) mEq/L Anion Gap 14.9 (5-15) BUN 22 H (7-18) mg/dL Creatinine 1.8 H (0.7-1.3) mg/dL Est Cr Clr Drug Dosing 34.73 mL/min Estimated GFR (MDRD) 36 (>60) mL/min BUN/Creatinine Ratio 12.2 L (14-18) Glucose 161 H (83-115) mg/dL Lactic Acid 0.9 (0.4-2.0) mmol/L Calcium 8.3 L (8.5-10.1) mg/dL Magnesium 1.9 (1.8-2.4) mg/dl Total Bilirubin 0.9 (0.2-1.0) mg/dL AST 19 (15-37) U/L ALT 23 (16-63) U/L Alkaline Phosphatase 90 (46-116) U/L Troponin I < 0.017 (0.00-0.056) ng/mL Total Protein 6.7 (6.4-8.2) g/dl Albumin 3.3 L (3.4-5.0) g/dl Globulin 3.4 gm/dL Albumin/Globulin Ratio 1.0 (1-2) Urine Color (Yellow) Urine Appearance (Clear) Urine pH (5.0-8.0) Ur Specific [place] (1.005-1.030) Urine Protein (Negative) Urine Glucose (UA) (Negative) Urine Ketones (Negative) Urine Occult Blood (Negative) Urine Nitrite (Negative) Urine Bilirubin (Negative) Urine Urobilinogen (0.2-1.0) Ur Leukocyte Esterase (Negative) Urine RBC (0-5) /hpf Urine WBC (0-5) /hpf Ur Squamous Epith Cells (0-5) /hpf Amorphous Sediment (NOT SEEN) /hpf Urine Bacteria (FEW) /hpf Urine Mucus (FEW) /hpf Result Diagrams: 09/16/19 05:19 09/16/19 05:19 Sepsis Event Note - Evaluation Sepsis Screening Result: No Definite Risk - Focused Exam Vital Signs: Vital Signs Temp Pulse Resp BP Pulse Ox 09/15/19 18:49 100.7 F H 86 16 157/76 H 92 L Date Exam was Performed: 09/16/19 Time Exam was Performed: 08:32 Problem List Initiated/Reviewed/Updated: Yes Orders Last 24hrs: Active Orders 24 hr Category Date Time Status ABG [RT Arterial Blood Gases, ABG] [RC] Click to Edit Care 09/15/19 19:19 Active EKG Documentation Completion [RC] STAT Care 09/15/19 19:17 Active Oxygen Therapy [RC] PRN Care 09/15/19 22:41 Active Oxygen Therapy, ED [RC] ASDIRECTED Care 09/15/19 19:32 Active VTE/DVT Education [RC] PER UNIT ROUTINE Care 09/15/19 22:41 Active Vital Signs [RC] Q4H Care 09/15/19 22:41 Active Heart Healthy Diet [DIET] Diet 09/15/19 Dinner Active CBC WITH AUTO DIFF [HEME] AM Lab 09/16/19 05:11 Ordered COMPREHENSIVE METABOLIC PN,CMP [CHEM] AM Lab 09/16/19 05:11 Ordered CULTURE BLOOD [BC] Stat Lab 09/15/19 19:40 Received CULTURE BLOOD [BC] Stat Lab 09/15/19 19:50 Received MAGNESIUM [CHEM] AM Lab 09/16/19 05:11 Ordered UA RFX SUSAN AND CULT IF INDIC [URIN] Stat Lab 09/15/19 19:41 Received Acetaminophen [Tylenol] Med 09/15/19 22:41 Active 650 mg PO Q4H PRN Acetaminophen/HYDROcodone [[place] 325-5 MG] Med 09/15/19 22:41 Active 1 tab PO Q4H PRN Enoxaparin [Lovenox] Med 09/16/19 09:00 Active 40 mg SUBCUT DAILY Ondansetron [Zofran] Med 09/15/19 22:41 Active 4 mg IV Q4H PRN Sodium Chloride 0.9% [Normal Saline] 1,000 ml Med 09/15/19 23:00 Active IV ASDIRECTED Blood Culture x2 Reflex Set [OM.PC] Stat Oth 09/15/19 19:17 Ordered Resuscitation Status Routine Resus Stat 09/15/19 22:41 Ordered Medication Orders Acetaminophen (Tylenol) 650 mg PO Q4H PRN PRN Reason: Pain (Mild 1-3)/fever Hydrocodone Bitart/Acetaminophen ([place] 325-5 Mg) 1 tab PO Q4H PRN PRN Reason: Pain (moderate 4-6) Enoxaparin Sodium (Lovenox) 40 mg SUBCUT DAILY BRANDY Sodium Chloride (Normal Saline) 1,000 mls @ 100 mls/hr IV ASDIRECTED BRANDY Ondansetron HCl (Zofran) 4 mg IV Q4H PRN PRN Reason: Nausea/Vomiting Assessment/Plan Comment:: Complicated UTI * Recent catheterization with ureteral stent and kidney stone * 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 * Lactic acid was 0.9 * UA consistent with infection Plan * Admit to floor for IV antibiotics * Change antibiotics to meropenem 1 g every 8 hours for complicated UTI * Urine culture pending * Blood cultures pending * Follow temperature closely since white count is unreliable * Early transfer if patient worsens * Reculture if fever spikes CLL * White count greater than 30,000 * Being managed as an outpatient with oncology Plan * Continue to monitor Stage III chronic renal insufficiency * Estimated GFR 36 * Creatinine 1.8 Plan * Gentle hydration * Follow renal function History of hypertension * Not currently taking his antihypertensive * On irbesartan at home per records, but patient could not remember himself. Plan * Monitor blood pressure closely * Consider restarting irbesartan if blood pressure VTE prophylaxis with Lovenox CODE STATUS full code Disposition: Admit to floor for IV antibiotics. - Mortality Measure Prognosis:: Good
[2019-09-15] MEDS ORDERED: Meropenem 1 GM SDV IVPUSH SCH (23:00)
[2019-09-15] MEDS ORDERED: Meropenem 1 GM in Sodium Chloride 0.9% 100 ML IV ONE (23:00)
[2019-09-16] MEDS: Sodium Chloride 0.9% 1,000 ML IV SCH ×3 (02:31→22:59)
[2019-09-16] MEDS ORDERED: Meropenem 1 GM in Sodium Chloride 0.9% 100 ML IV SCH (07:00)
[2019-09-16] MEDS ORDERED: MEROPENEM IV SCH (08:11)
[2019-09-16] MEDS: Enoxaparin 40 MG/0.4 ML Syringe SUBCUT SCH (08:17)
[2019-09-16] MEDS: Meropenem Premix 500 MG in Premix Bag 1 BAG IV SCH ×2 (08:30→16:47)
--- NOTE | 2019-09-16 08:47 | PCM.PN ---
- General Info Date of Service: 09/16/19 Subjective Update: Patient states that he is feeling better this morning. He had a good breakfast. T-max overnight 100.6. Functional Status: Reports: Pain Controlled - Review of Systems General: Reports: No Symptoms. Denies: Fatigue HEENT: Reports: No Symptoms Pulmonary: Reports: No Symptoms Cardiovascular: Reports: No Symptoms Gastrointestinal: Reports: No Symptoms Musculoskeletal: Reports: No Symptoms Psychiatric: Reports: No Symptoms - Patient Data Vitals - Most Recent: Last Vital Signs Temp 99.1 F 09/16/19 05:15 Pulse 67 09/16/19 05:15 Resp 20 09/16/19 05:15 BP 155/87 H 09/16/19 05:15 Pulse Ox 95 09/16/19 05:15 Weight - Most Recent: 194 lb Lab Results Last 24 Hours: Laboratory Results - last 24 hr 09/15/19 09/15/19 09/15/19 Range/Units 18:50 19:30 19:30 WBC 32.41 H (4.23-9.07) K/mm3 RBC 4.74 (4.63-6.08) M/mm3 Hgb 14.5 (13.7-17.5) gm/dl Hct 43.3 (40.1-51.0) % MCV 91.4 (79.0-92.2) fl MCH 30.6 (25.7-32.2) pg MCHC 33.5 (32.2-35.5) g/dl RDW Std Deviation 46.5 H (35.1-43.9) fL Plt Count 218 (163-337) K/mm3 MPV 10.0 (9.4-12.3) fl Neut % (Auto) (34.0-67.9) % Lymph % (Auto) (21.8-53.1) % Dickens % (Auto) (5.3-12.2) % Eos % (Auto) (0.8-7.0) Baso % (Auto) (0.1-1.2) % Neut # (Auto) (1.78-5.38) K/mm3 Lymph # (Auto) (1.32-3.57) K/mm3 Dickens # (Auto) (0.30-0.82) K/mm3 Eos # (Auto) (0.04-0.54) K/mm3 Baso # (Auto) (0.01-0.08) K/mm3 Neutrophils % (Manual) 35 L (40-60) % Band Neutrophils % 0 (0-10) % Lymphocytes % (Manual) 60 H (20-40) % Atypical Lymphs % 0 % Monocytes % (Manual) 5 (2-10) % Eosinophils % (Manual) 0 L (0.8-7.0) % Basophils % (Manual) 0 L (0.2-1.2) Manual Slide Review Platelet Estimate Adequate Plt Morphology Comment Normal RBC Morph Comment Normal PT 11.1 (9.7-12.0) SECONDS INR 1.02 Puncture Site ABG pH (7.35-7.45) ABG pCO2 (35.0-45.0) mmHg ABG pO2 (80.0-100.0) mmHg ABG HCO3 (22.0-26.0) meq/L ABG O2 Saturation (96.0-97.0) % ABG Base Excess (-2-2.0) A-a Gradient mmHg O2 Delivery Device Oxygen Flow Rate FiO2 (21.00-100.00) % Sodium (136-145) mEq/L Potassium (3.5-5.1) mEq/L Chloride (98-107) mEq/L Carbon Dioxide (21-32) mEq/L Anion Gap (5-15) BUN (7-18) mg/dL Creatinine (0.7-1.3) mg/dL Est Cr Clr Drug Dosing mL/min Estimated GFR (MDRD) (>60) mL/min BUN/Creatinine Ratio (14-18) Glucose (83-115) mg/dL Lactic Acid (0.4-2.0) mmol/L Calcium (8.5-10.1) mg/dL Magnesium (1.8-2.4) mg/dl Total Bilirubin (0.2-1.0) mg/dL AST (15-37) U/L ALT (16-63) U/L Alkaline Phosphatase (46-116) U/L Troponin I (0.00-0.056) ng/mL Total Protein (6.4-8.2) g/dl Albumin (3.4-5.0) g/dl Globulin gm/dL Albumin/Globulin Ratio (1-2) Urine Color Yellow (Yellow) Urine Appearance Slt cloudy H (Clear) Urine pH 5.5 (5.0-8.0) Ur Specific [place] 1.025 (1.005-1.030) Urine Protein 2+ H (Negative) Urine Glucose (UA) Negative (Negative) Urine Ketones Negative (Negative) Urine Occult Blood 2+ H (Negative) Urine Nitrite Negative (Negative) Urine Bilirubin Negative (Negative) Urine Urobilinogen 0.2 (0.2-1.0) Ur Leukocyte Esterase 1+ H (Negative) Urine RBC 10-20 H (0-5) /hpf Urine WBC 40-50 H (0-5) /hpf Ur Squamous Epith Cells 10-20 H (0-5) /hpf Amorphous Sediment Few H (NOT SEEN) /hpf Urine Bacteria Moderate H (FEW) /hpf Urine Mucus Few (FEW) /hpf 09/15/19 09/15/19 09/15/19 Range/Units 19:30 19:30 19:40 WBC (4.23-9.07) K/mm3 RBC (4.63-6.08) M/mm3 Hgb (13.7-17.5) gm/dl Hct (40.1-51.0) % MCV (79.0-92.2) fl MCH (25.7-32.2) pg MCHC (32.2-35.5) g/dl RDW Std Deviation (35.1-43.9) fL Plt Count (163-337) K/mm3 MPV (9.4-12.3) fl Neut % (Auto) (34.0-67.9) % Lymph % (Auto) (21.8-53.1) % Dickens % (Auto) (5.3-12.2) % Eos % (Auto) (0.8-7.0) Baso % (Auto) (0.1-1.2) % Neut # (Auto) (1.78-5.38) K/mm3 Lymph # (Auto) (1.32-3.57) K/mm3 Dickens # (Auto) (0.30-0.82) K/mm3 Eos # (Auto) (0.04-0.54) K/mm3 Baso # (Auto) (0.01-0.08) K/mm3 Neutrophils % (Manual) (40-60) % Band Neutrophils % (0-10) % Lymphocytes % (Manual) (20-40) % Atypical Lymphs % % Monocytes % (Manual) (2-10) % Eosinophils % (Manual) (0.8-7.0) % Basophils % (Manual) (0.2-1.2) Manual Slide Review Platelet Estimate Plt Morphology Comment RBC Morph Comment PT (9.7-12.0) SECONDS INR Puncture Site Lt radial ABG pH 7.48 H (7.35-7.45) ABG pCO2 31.0 L (35.0-45.0) mmHg ABG pO2 77.0 L (80.0-100.0) mmHg ABG HCO3 23.0 (22.0-26.0) meq/L ABG O2 Saturation 95.3 L (96.0-97.0) % ABG Base Excess 0.7 (-2-2.0) A-a Gradient 34 mmHg O2 Delivery Device Room air Oxygen Flow Rate 0.0 FiO2 21.00 (21.00-100.00) % Sodium 135 L (136-145) mEq/L Potassium 3.9 (3.5-5.1) mEq/L Chloride 100 (98-107) mEq/L Carbon Dioxide 24 (21-32) mEq/L Anion Gap 14.9 (5-15) BUN 22 H (7-18) mg/dL Creatinine 1.8 H (0.7-1.3) mg/dL Est Cr Clr Drug Dosing 34.73 mL/min Estimated GFR (MDRD) 36 (>60) mL/min BUN/Creatinine Ratio 12.2 L (14-18) Glucose 161 H (83-115) mg/dL Lactic Acid 0.9 (0.4-2.0) mmol/L Calcium 8.3 L (8.5-10.1) mg/dL Magnesium 1.9 (1.8-2.4) mg/dl Total Bilirubin 0.9 (0.2-1.0) mg/dL AST 19 (15-37) U/L ALT 23 (16-63) U/L Alkaline Phosphatase 90 (46-116) U/L Troponin I < 0.017 (0.00-0.056) ng/mL Total Protein 6.7 (6.4-8.2) g/dl Albumin 3.3 L (3.4-5.0) g/dl Globulin 3.4 gm/dL Albumin/Globulin Ratio 1.0 (1-2) Urine Color (Yellow) Urine Appearance (Clear) Urine pH (5.0-8.0) Ur Specific [place] (1.005-1.030) Urine Protein (Negative) Urine Glucose (UA) (Negative) Urine Ketones (Negative) Urine Occult Blood (Negative) Urine Nitrite (Negative) Urine Bilirubin (Negative) Urine Urobilinogen (0.2-1.0) Ur Leukocyte Esterase (Negative) Urine RBC (0-5) /hpf Urine WBC (0-5) /hpf Ur Squamous Epith Cells (0-5) /hpf Amorphous Sediment (NOT SEEN) /hpf Urine Bacteria (FEW) /hpf Urine Mucus (FEW) /hpf 09/16/19 09/16/19 Range/Units 05:19 05:19 WBC 30.49 H (4.23-9.07) K/mm3 RBC 4.47 L (4.63-6.08) M/mm3 Hgb 13.5 L (13.7-17.5) gm/dl Hct 40.9 (40.1-51.0) % MCV 91.5 (79.0-92.2) fl MCH 30.2 (25.7-32.2) pg MCHC 33.0 (32.2-35.5) g/dl RDW Std Deviation 46.6 H (35.1-43.9) fL Plt Count 195 (163-337) K/mm3 MPV 10.4 (9.4-12.3) fl Neut % (Auto) 32.7 L (34.0-67.9) % Lymph % (Auto) 60.2 H (21.8-53.1) % Dickens % (Auto) 6.8 (5.3-12.2) % Eos % (Auto) 0 L (0.8-7.0) Baso % (Auto) 0.1 (0.1-1.2) % Neut # (Auto) 9.94 H (1.78-5.38) K/mm3 Lymph # (Auto) 18.37 H (1.32-3.57) K/mm3 Dickens # (Auto) 2.07 H (0.30-0.82) K/mm3 Eos # (Auto) 0.00 L (0.04-0.54) K/mm3 Baso # (Auto) 0.04 (0.01-0.08) K/mm3 Neutrophils % (Manual) (40-60) % Band Neutrophils % (0-10) % Lymphocytes % (Manual) (20-40) % Atypical Lymphs % % Monocytes % (Manual) (2-10) % Eosinophils % (Manual) (0.8-7.0) % Basophils % (Manual) (0.2-1.2) Manual Slide Review Abnormal smear Platelet Estimate Plt Morphology Comment RBC Morph Comment PT (9.7-12.0) SECONDS INR Puncture Site ABG pH (7.35-7.45) ABG pCO2 (35.0-45.0) mmHg ABG pO2 (80.0-100.0) mmHg ABG HCO3 (22.0-26.0) meq/L ABG O2 Saturation (96.0-97.0) % ABG Base Excess (-2-2.0) A-a Gradient mmHg O2 Delivery Device Oxygen Flow Rate FiO2 (21.00-100.00) % Sodium 138 (136-145) mEq/L Potassium 3.6 (3.5-5.1) mEq/L Chloride 104 (98-107) mEq/L Carbon Dioxide 22 (21-32) mEq/L Anion Gap 15.6 H (5-15) BUN 22 H (7-18) mg/dL Creatinine 1.7 H (0.7-1.3) mg/dL Est Cr Clr Drug Dosing 36.77 mL/min Estimated GFR (MDRD) 39 (>60) mL/min BUN/Creatinine Ratio 12.9 L (14-18) Glucose 149 H (83-115) mg/dL Lactic Acid (0.4-2.0) mmol/L Calcium 7.9 L (8.5-10.1) mg/dL Magnesium 1.8 (1.8-2.4) mg/dl Total Bilirubin 0.8 (0.2-1.0) mg/dL AST 13 L (15-37) U/L ALT 20 (16-63) U/L Alkaline Phosphatase 76 (46-116) U/L Troponin I (0.00-0.056) ng/mL Total Protein 6.1 L (6.4-8.2) g/dl Albumin 2.9 L (3.4-5.0) g/dl Globulin 3.2 gm/dL Albumin/Globulin Ratio 0.9 L (1-2) Urine Color (Yellow) Urine Appearance (Clear) Urine pH (5.0-8.0) Ur Specific [place] (1.005-1.030) Urine Protein (Negative) Urine Glucose (UA) (Negative) Urine Ketones (Negative) Urine Occult Blood (Negative) Urine Nitrite (Negative) Urine Bilirubin (Negative) Urine Urobilinogen (0.2-1.0) Ur Leukocyte Esterase (Negative) Urine RBC (0-5) /hpf Urine WBC (0-5) /hpf Ur Squamous Epith Cells (0-5) /hpf Amorphous Sediment (NOT SEEN) /hpf Urine Bacteria (FEW) /hpf Urine Mucus (FEW) /hpf Med Orders - Current: Current Medications Acetaminophen (Tylenol) 650 mg PO Q4H PRN PRN Reason: Pain (Mild 1-3)/fever Hydrocodone Bitart/Acetaminophen ([place]clay 325-5 Mg) 1 tab PO Q4H PRN PRN Reason: Pain (moderate 4-6) Enoxaparin Sodium (Lovenox) 40 mg SUBCUT DAILY [facility] Last Admin: 09/16/19 08:17 Dose: 40 mg Sodium Chloride (Normal Saline) 1,000 mls @ 100 [facility]ls[facility] Last Admin: 09/16/19 02:31 Dose: 100 mls/hr Meropenem/Sodium Chloride 500 (mg/ Premix) 50 mls @ 100 mls/hr IV Q8H [facility] Last Admin: 09/16/19 08:30 Dose: 100 mls/hr Ondansetron HCl (Zofran) 4 mg IV Q4H PRN PRN Reason: Nausea/Vomiting Discontinued Medications Sodium Chloride (Normal Saline) 1,000 mls @ 150 mls/hr IV ASDIRECTED [facility] Last Admin: 09/15/19 19:37 Dose: 150 mls/hr Ceftriaxone Sodium 1 gm/ (Sodium Chloride) 100 mls @ 200 mls/hr IV ONETIME ONE Stop: 09/15/19 20:04 Last Admin: 09/15/19 19:45 Dose: 200 mls/hr Gentamicin Sulfate 100 mg/ (Sodium Chloride) 102.5 mls @ 200 mls/hr IV ONETIME ONE Stop: 09/15/19 20:24 Last Admin: 09/15/19 20:25 Dose: 200 mls/hr Meropenem 1 gm/ Sodium (Chloride) 100 mls @ 200 mls/hr IV ONETIME ONE Stop: 09/15/19 23:29 Last Admin: 09/15/19 23:16 Dose: 200 mls/hr Meropenem 1 gm/ Sodium (Chloride) 100 mls @ 33.3 mls/hr IV Q8H [facility] Last Admin: 09/16/19 08:26 Dose: Not Given Meropenem/Sodium Chloride 50 (mg/ Premix) 5 mls @ 10 mls/hr IV Q8H [facility] Last Admin: 09/16/19 08:26 Dose: Not Given Meropenem (Merrem) 1 gm IVPUSH Q8H [facility] - Exam General: Alert, Oriented HEENT: Pupils Equal, Mucous Membr. Moist/[place] Neck: Supple Lungs: Clear to Auscultation, Normal Respiratory Effort Cardiovascular: Regular Rate, Regular Rhythm GI/Abdominal Exam: Normal Bowel Sounds, Soft, Non-Tender, No Organomegaly, No Distention, No Abnormal Bruit Extremities: Normal Inspection, Normal Range of Motion, Non-Tender, No Pedal Edema, Normal Capillary Refill Skin: Warm, Dry, Intact Psy/Mental Status: Alert, Normal Affect, Normal Mood Sepsis Event Note - Evaluation Sepsis Screening Result: No Definite Risk - Focused Exam Vital Signs: Vital Signs Temp Temp Pulse Pulse Resp BP BP 09/16/19 05:15 99.1 F 67 20 155/87 H 09/16/19 00:01 100.6 F 76 18 183/83 H 09/15/19 23:19 98.2 F 71 18 168/79 H Pulse Ox 09/16/19 05:15 95 09/16/19 00:01 96 09/15/19 23:19 100 Date Exam was Performed: 09/16/19 Time Exam was Performed: 08:41 - Problem List Review Problem List Initiated/Reviewed/Updated: Yes - My Orders Last 24 Hours: My Active Orders 09/15/19 22:41 Oxygen Therapy [RC] PRN VTE/DVT Education [RC] PER UNIT ROUTINE Vital Signs [RC] Q4H Acetaminophen [Tylenol] 650 mg PO Q4H PRN Acetaminophen/HYDROcodone [Barclay 325-5 MG] 1 tab PO Q4H PRN Ondansetron [Zofran] 4 mg IV Q4H PRN Resuscitation Status Routine 09/15/19 23:00 Sodium Chloride 0.9% [Normal Saline] 1,000 ml IV ASDIRECTED 09/15/19 Dinner Heart Healthy Diet [DIET] 09/16/19 00:00 Isolation [COMM] Routine 09/16/19 00:22 Patient Status [ADT] Routine 09/16/19 07:59 PT Evaluation and Treatment [CONS] Routine 09/16/19 09:00 Enoxaparin [Lovenox] 40 mg SUBCUT DAILY - Plan Plan:: Complicated UTI * Recent catheterization with ureteral stent and kidney stone * 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 * Lactic acid was 0.9 * UA consistent with infection Plan * Admit to floor for IV antibiotics * Change antibiotics to meropenem 1 g every 8 hours for complicated UTI * Urine culture pending * Blood cultures pending * Follow temperature closely since white count is unreliable * Early transfer if patient worsens * Reculture if fever greater than 101 CLL * White count greater than 30,000 * Being managed as an outpatient with oncology Plan * Continue to monitor Stage III chronic renal insufficiency * Estimated GFR 36-->39 * Creatinine 1.8-->1.7 Plan * Gentle hydration * Follow renal function History of hypertension * Not currently taking his antihypertensive * On irbesartan at home per records, but patient could not remember himself. * Blood pressure ranged from 155/87 to 183/83 overnight Plan * Monitor blood pressure closely * May need to consider medication other than an MAXWELL inhibitor or ARB secondary to renal function. VTE prophylaxis with Lovenox CODE STATUS full code Disposition: Admit to floor for IV antibiotics.
[2019-09-17] MEDS: Meropenem Premix 500 MG in Premix Bag 1 BAG IV SCH ×3 (00:41→16:35)
[2019-09-17] MEDS: Enoxaparin 40 MG/0.4 ML Syringe SUBCUT SCH (08:31)
[2019-09-17] MEDS ORDERED: Sodium Chloride 0.9% 10 ML Syringe FLUSH PRN (09:59)
--- NOTE | 2019-09-17 10:59 | PCM.PN ---
- General Info Date of Service: 09/17/19 Subjective Update: Patient states that he is feeling better this morning. Afebrile overnight. Appetite was good yesterday. Bowel movement yesterday. - Review of Systems General: Reports: No Symptoms HEENT: Reports: No Symptoms Pulmonary: Reports: No Symptoms Cardiovascular: Reports: No Symptoms Musculoskeletal: Reports: No Symptoms - Patient Data Vitals - Most Recent: Last Vital Signs Temp 97.7 F 09/17/19 07:35 Pulse 53 L 09/17/19 07:35 Resp 20 09/17/19 07:35 BP 128/75 09/17/19 07:35 Pulse Ox 97 09/17/19 07:35 Weight - Most Recent: 183 lb 11.2 oz I&O - Last 24 Hours: Intake & Output 09/16/19 09/17/19 09/17/19 22:59 06:59 14:59 Intake Total 1688 1465 120 Output Total 500 1000 Balance 1188 465 120 Davy Results Last 24 Hours: Microbiology 09/15/19 19:50 Aerobic Blood Culture - Preliminary Blood - Venous - Lab Draw NO GROWTH AFTER 1 DAY Anaerobic Blood Culture - Preliminary NO GROWTH AFTER 1 DAY 09/15/19 19:40 Aerobic Blood Culture - Preliminary Blood - Venous NO GROWTH AFTER 1 DAY Anaerobic Blood Culture - Preliminary NO GROWTH AFTER 1 DAY Med Orders - Current: Current Medications Acetaminophen (Tylenol) 650 mg PO Q4H PRN PRN Reason: Pain (Mild 1-3)/fever Hydrocodone Bitart/Acetaminophen ([place] 325-5 Mg) 1 tab PO Q4H PRN PRN Reason: Pain (moderate 4-6) Enoxaparin Sodium (Lovenox) 40 mg SUBCUT DAILY [facility] Last Admin: 09/17/19 08:31 Dose: 40 mg Meropenem/Sodium Chloride 500 (mg/ Premix) 50 mls @ 100 mls/hr IV Q8H [facility] Last Admin: 09/17/19 08:32 Dose: 100 mls/hr Ondansetron HCl (Zofran) 4 mg IV Q4H PRN PRN Reason: Nausea/Vomiting Sodium Chloride (Saline Flush) 10 ml FLUSH ASDIRECTED PRN PRN Reason: Keep Vein Open Discontinued Medications Sodium Chloride (Normal Saline) 1,000 mls @ 150 mls/hr IV ASDIRECTED [facility] Last Admin: 09/15/19 19:37 Dose: 150 mls/hr Ceftriaxone Sodium 1 gm/ (Sodium Chloride) 100 mls @ 200 mls/hr IV ONETIME ONE Stop: 09/15/19 20:04 Last Admin: 09/15/19 19:45 Dose: 200 mls/hr Gentamicin Sulfate 100 mg/ (Sodium Chloride) 102.5 mls @ 200 mls/hr IV ONETIME ONE Stop: 09/15/19 20:24 Last Admin: 09/15/19 20:25 Dose: 200 mls/hr Sodium Chloride (Normal Saline) 1,000 mls @ 100 mls/hr IV ASDIRECTED [facility] Last Admin: 09/16/19 22:59 Dose: 100 mls/hr Meropenem 1 gm/ Sodium (Chloride) 100 mls @ 200 mls/hr IV ONETIME ONE Stop: 09/15/19 23:29 Last Admin: 09/15/19 23:16 Dose: 200 mls/hr Meropenem 1 gm/ Sodium (Chloride) 100 mls @ 33.3 mls/hr IV Q8H [facility] Last Admin: 09/16/19 08:26 Dose: Not Given Meropenem/Sodium Chloride 50 (mg/ Premix) 5 mls @ 10 mls/hr IV Q8H [facility] Last Admin: 09/16/19 08:26 Dose: Not Given Meropenem (Merrem) 1 gm IVPUSH Q8H [facility] - Exam General: Alert, Oriented HEENT: Pupils Equal, Mucous Membr. Moist/[place] Neck: Supple Lungs: Clear to Auscultation, Normal Respiratory Effort Cardiovascular: Regular Rate, Regular Rhythm GI/Abdominal Exam: Normal Bowel Sounds, Soft, Non-Tender, No Organomegaly, No Distention, No Abnormal Bruit Extremities: Normal Inspection, Normal Range of Motion, Non-Tender, No Pedal Edema, Normal Capillary Refill Skin: Warm, Dry, Intact Psy/Mental Status: Alert, Normal Affect, Normal Mood Sepsis Event Note - Evaluation Sepsis Screening Result: No Definite Risk - Focused Exam Vital Signs: Vital Signs Temp Pulse Resp BP Pulse Ox 09/17/19 07:35 97.7 F 53 L 20 128/75 97 09/17/19 04:42 98.2 F 56 L 18 134/70 95 Date Exam was Performed: 09/17/19 Time Exam was Performed: 10:56 - Problem List Review Problem List Initiated/Reviewed/Updated: Yes - My Orders Last 24 Hours: My Active Orders 09/17/19 09:59 Sodium Chloride 0.9% [Saline Flush] 10 ml FLUSH ASDIRECTED PRN Convert IV to Saline Lock [OM.PC] Routine 09/18/19 05:11 BASIC METABOLIC PANEL,BMP [CHEM] AM CBC WITH AUTO DIFF [HEME] AM MAGNESIUM [CHEM] AM - Plan Plan:: Complicated UTI * Recent catheterization with ureteral stent and kidney stone * 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 * Gram stain showed multiple species consistent with contamination Plan * Admit to floor for IV antibiotics * Change antibiotics to meropenem 1 g every 8 hours for complicated UTI * Urine culture pending * Blood cultures pending -negative x1 day * Follow temperature closely since white count is unreliable * Early transfer if patient worsens * Reculture if fever greater than 101 CLL * White count greater than 30,000 * Being managed as an outpatient with oncology Plan * Continue to monitor Stage III chronic renal insufficiency * Estimated GFR 36-->39 * Creatinine 1.8-->1.7 Plan * Stop IV fluids * Follow renal function History of hypertension * Not currently taking his antihypertensive * On irbesartan at home per records, but patient could not remember himself. * Blood pressure ranged from 155/87 to 183/83 overnight Plan * Monitor blood pressure closely * May need to consider medication other than an MAXWELL inhibitor or ARB secondary to renal function. VTE prophylaxis with Lovenox CODE STATUS full code Disposition: Admit to floor for IV antibiotics.
[2019-09-18] MEDS: Meropenem Premix 500 MG in Premix Bag 1 BAG IV SCH ×3 (01:24→17:37)
[2019-09-18] MEDS: Enoxaparin 40 MG/0.4 ML Syringe SUBCUT SCH (08:53)
--- NOTE | 2019-09-18 15:48 | PCM.DCSUM1 ---
Discharge Summary - Hospital Course HPI Initial Comments: 84-year-old male who had a ureteral stent placed for kidney stones on presents to the emergency department after 3 days of feeling weak. Patient states that for the last 3 days has had decreased appetite, fever, dizziness, and weakness. Apparently after his procedure for stent placing he had extreme urinary pain and bladder spasm. 2 weeks ago he had a urinary catheter placed and it was removed on September 07. A few days afterward patient started having the above symptoms. Patient does have CLL and is seeing an oncologist. He is on antihypertensives but has not been taking it lately because his blood pressure has been good. On presentation to the emergency department he did have a temperature of 108 degrees, but heart rate was 86 and respiratory rate was 16 with a blood pressure of 157/76 and a pulse ox of 90%. Chest x-ray was negative. White count was 32.4 with 60% lymphocytes and no bands, consistent with his CLL , UA 40-50 WBCs negative nitrites, 10-20 RBCs, 10-20 epithelial cells, ABG: pH 7.48, PCO2 of 31, PO2 of 77, bicarb 23, O2 sats 95% on room air. This is consistent with respiratory alkalosis. CMP showed normal electrolytes except a slightly low sodium of 135, decreased kidney function with estimated GFR of 36, creatinine of 1.8, BUN 22. Liver functions were normal. Troponin less than 0.017. Lactic acid 0.9. Patient was given Rocephin and gentamicin and urology at [facility] in [place] was consulted by phone. Recommendations were to admit him to our facility and if he gets worse transfer him. Hospitalist service was then called for admission. Diagnosis: Stroke: No - Discharge Data Discharge Date: 09/18/19 Discharge Disposition: Home, Self-Care 01 Condition: Good - Referral to Home Health Primary Care Physician: Jennifer Duffy NP - Discharge Diagnosis/Problem(s) (1) Volume depletion SNOMED Code(s): 903742227 ICD Code: E86.9 - VOLUME DEPLETION, UNSPECIFIED Status: Acute Current Visit: Yes (2) Sepsis due to gram-negative UTI SNOMED Code(s): 054193223 ICD Code: A41.50 - GRAM-NEGATIVE SEPSIS, UNSPECIFIED; N39.0 - URINARY TRACT INFECTION, SITE NOT SPECIFIED Status: Acute Current Visit: Yes (3) Status post placement of ureteral stent SNOMED Code(s): 374315065, 797800647 ICD Code: Z96.0 - PRESENCE OF UROGENITAL IMPLANTS Status: Acute Current Visit: Yes (4) Urinary tract infection SNOMED Code(s): 37916950 ICD Code: N39.0 - URINARY TRACT INFECTION, SITE NOT SPECIFIED Status: Acute Current Visit: Yes Qualifiers: Urinary tract infection type: site unspecified Hematuria presence: with hematuria Qualified Code(s): N39.0 - Urinary tract infection, site not specified; R31.9 - Hematuria, unspecified - Patient Summary/Data Consults: Consultations 09/16/19 07:59 PT Evaluation and Treatment [CONS] Routine Hospital Course: Complicated UTI - Admitted for IV Meropenem - No urine culture available - Afebrile since admission - WBC count trending down as well as neutrophil predominance - No bands seen on smear - Blood cultures negative from admission - Will need urology follow up Acute on Chronic Kidney injury - GFR on admission 36 2/2 hypovolemia - Back ot baseline > 50 upon discharge - Adequate urine output - No signs of volume depletion or overload - Discharge Plan *PRESCRIPTION DRUG MONITORING PROGRAM REVIEWED*: No *COPY OF PRESCRIPTION DRUG MONITORING REPORT IN PATIENT BRIGIDO: No Prescriptions/Med Rec: cephALEXin [Keflex] 500 mg PO Q8H #12 cap Home Medications: Home Meds Irbesartan [Avapro] 150 mg PO DAILY 11/25/13 [History] Tamsulosin HCl 0.4 mg PO QAM 11/25/13 [History] Ondansetron [Zofran ODT] 4 mg PO Q6H PRN #10 tab.dis 08/27/19 [Rx] cephALEXin [Keflex] 500 mg PO Q8H #12 cap 09/18/19 [Rx] Oxygen Therapy Mode: Room Air Patient Handouts: Urinary Tract Infection, Adult, [id number] Referrals: Jennifer Duffy NP [Primary Care Provider] - 09/25/19 11:00 am (Please check in by 10:45 am.) - Discharge Summary/Plan Comment DC Time >30 min.: Yes - General Info Date of Service: 09/18/19 Subjective Update: Feeling OK Tolerating diet Ambulating No pain or discomfort - Patient Data Vitals - Most Recent: Last Vital Signs Temp 97.7 F 09/18/19 13:01 Pulse 55 L 09/18/19 13:01 Resp 14 09/18/19 13:01 BP 149/78 H 09/18/19 13:01 Pulse Ox 95 09/18/19 13:01 Weight - Most Recent: 83.506 kg - Exam General: Reports: Alert, Oriented, Cooperative, No Acute Distress HEENT: Reports: Pupils Equal, Pupils Reactive Neck: Reports: Supple, Trachea Midline, No JVD Lungs: Reports: Clear to Auscultation, Normal Respiratory Effort. Denies: Crackles, Rales, Rhonchi, Rub, Stridor, Wheezing Cardiovascular: Reports: Regular Rate, Regular Rhythm. Denies: Murmurs, Gallops , Rubs GI/Abdominal Exam: Normal Bowel Sounds, Soft, Non-Tender. No: Distended, Guarding, Rigid, Rebound Back Exam: Reports: Normal Inspection. Denies: CVA Tenderness (L), CVA Tenderness (R) Extremities: Normal Inspection, Normal Range of Motion, Non-Tender, No Pedal Edema, Normal Capillary Refill Skin: Reports: Warm, Dry Neurological: Reports: No New Focal Deficit Psy/Mental Status: Reports: Alert
[2019-09-18 17:29] VITALS: BP 140/72; PULSE 50
== END 2019-09-18 16:30 | disposition home or self-care (01) | DRG 872 ==
LOC: JD.ED 18:14 → JD.MS 23:04
PROVIDERS: ADMIT Family Medicine; ATTEND Family Medicine
DX: A41.50 Gram-negative sepsis, unspecified (principal); R31.9 Hematuria, unspecified; N39.0 Urinary tract infection, site not specified; H54.7 Unspecified visual loss; N17.9 Acute kidney failure, unspecified; C91.10 Chronic lymphocytic leukemia of B-cell type not having achieved remission; I10 Essential (primary) hypertension; Z98.49 Cataract extraction status, unspecified eye; N40.0 Benign prostatic hyperplasia without lower urinary tract symptoms; Z96.0 Presence of urogenital implants; N18.3 Chronic kidney disease, stage 3 (moderate); Z79.899 Other long term (current) drug therapy; Z87.442 Personal history of urinary calculi
CPT/HCPCS: 36415; 36600; 71045; 71045-26; 80048; 80053; 81001; 82803; 83605; 83735; 84484; 85007; 85025; 85027; 85610; 87040; 87086; 93005; 96361; 96365; 96367; 97110-GP; 97112-GP; 97116-GP; 97161-GP; 99222; 99231; 99232; 99239; 99285-25; J0696; J1580; J1650; J2185; J7030; J7050

== ENCOUNTER 2020-08-02 16:40 | Emergency (ER) | payer MEDICARE, BC ==
[2020-08-02] MEDS ORDERED: Labetalol 100 MG/20 ML MDV IVPUSH ONE (18:54)
[2020-08-02] MEDS ORDERED: amLODIPine 5 MG Tab PO ONE (19:48)
--- NOTE | 2020-08-02 21:13 | EDM.PDOC ---
ED HPI GENERAL MEDICAL PROBLEM - General Chief Complaint: Cardiovascular Problem Stated Complaint: HIGH BP Time Seen by Provider: 08/02/20 17:38 Source of Information: Reports: Patient, RN Notes Reviewed History Limitations: Reports: No Limitations - History of Present Illness INITIAL COMMENTS - FREE TEXT/NARRATIVE: Patient is an 85-year-old male presenting to the emergency for evaluation with regards to elevated blood pressure over the last few days. States his blood pressure is normally in the 140s over 80s, however over the last few days when he is checked it is in the 170s over 100. He reports a history of hypertension but no other cardiac history. States his irbesartan was recently increased from 150 mg to 300 mg 2 weeks ago. He has not had any chest pain, headaches, shortness of breath, or other concerning symptoms. States he has been monitoring his blood pressures at home and noticed this upward trend. He contacted his primary care this afternoon and she recommended he come to the ER for evaluation. - Related Data Allergies Allergy/AdvReac Type Severity Reaction Status Date / Time No Known Allergies Allergy Verified 08/02/20 17:33 Home Meds: Home Meds Irbesartan [Avapro] 300 mg PO DAILY 11/25/13 [History] Tamsulosin HCl 0.4 mg PO QAM 11/25/13 [History] amLODIPine [Norvasc] 5 mg PO DAILY #30 tab 08/02/20 [Rx] Past Medical History HEENT History: Reports: Cataract, Impaired Vision Cardiovascular History: Reports: Hypertension Genitourinary History: Reports: BPH, Renal Calculus Other Genitourinary History: stent was placed 09/06/2019 and is to be removed 09/23/2019 Endocrine/Metabolic History: Reports: Diabetes, Type II Oncologic (Cancer) History: Reports: Other (See Below) Other Oncologic History: 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 - Infectious Disease History Infectious Disease History: Reports: Measles - Past Surgical History HEENT Surgical History: Reports: Cataract Surgery Other HEENT Surgeries/Procedures: cataract surgery to both eyes Cardiovascular Surgical History: Reports: None Male Surgical History: Reports: None Endocrine Surgical History: Reports: None Oncologic Surgical History: Reports: None Social & Family History - Tobacco Use Tobacco Use Status *Q: Former Tobacco User Used Tobacco, but Quit: Yes Month/Year Tobacco Last Used: 50 years ago - Caffeine Use Caffeine Use: Reports: None - Recreational Drug Use Recreational Drug Use: No ED ROS GENERAL - Review of Systems Review Of Systems: See Below Constitutional: Reports: No Symptoms. Denies: Weakness, Fatigue HEENT: Reports: No Symptoms Respiratory: Reports: No Symptoms. Denies: Shortness of Breath, Cough Cardiovascular: Reports: No Symptoms. Denies: Chest Pain, Dyspnea on Exertion, Lightheadedness, Palpitations, Syncope Endocrine: Reports: No Symptoms GI/Abdominal: Reports: No Symptoms : Reports: No Symptoms Musculoskeletal: Reports: No Symptoms Skin: Reports: No Symptoms Neurological: Reports: No Symptoms Psychiatric: Reports: No Symptoms Hematologic/Lymphatic: Reports: No Symptoms Immunologic: Reports: No Symptoms ED EXAM, GENERAL - Physical Exam Exam: See Below Exam Limited By: No Limitations General Appearance: Alert, WD/WN, No Apparent Distress Respiratory/Chest: No Respiratory Distress, Lungs Clear, Normal Breath Sounds, No Accessory Muscle Use, Chest Non-Tender Cardiovascular: Normal Peripheral Pulses, Regular Rate, Rhythm, No Edema, No Gallop, No JVD, No Murmur, No Rub Extremities: Normal Inspection, Normal Range of Motion, Non-Tender, Normal Capillary Refill, No Pedal Edema Neurological: Alert, Oriented, CN II-XII Intact, Normal Cognition, Normal Gait, Normal Reflexes, No Motor/Sensory Deficits Psychiatric: Normal Affect, Normal Mood Skin Exam: Warm, Dry, Intact, Normal Color, No Rash Course - Vital Signs Last Recorded V/S: Last Vital Signs Temp 97.4 F 08/02/20 17:30 Pulse 59 L 08/02/20 21:19 Resp 16 08/02/20 21:19 BP 157/95 H 08/02/20 21:19 Pulse Ox 92 L 08/02/20 21:19 - Orders/Labs/Meds Labs: Laboratory Tests 08/02/20 08/02/20 08/02/20 Range/Units 17:57 17:57 17:57 WBC 29.39 H (4.23-9.07) K/mm3 RBC 5.29 (4.63-6.08) M/mm3 Hgb 16.0 (13.7-17.5) gm/dl Hct 47.3 (40.1-51.0) % MCV 89.4 (79.0-92.2) fl MCH 30.2 (25.7-32.2) pg MCHC 33.8 (32.2-35.5) g/dl RDW Std Deviation 45.6 H (35.1-43.9) fL Plt Count 133 L (163-337) K/mm3 MPV 10.4 (9.4-12.3) fl Neut % (Auto) 20.9 L (34.0-67.9) % Lymph % (Auto) 74.3 H (21.8-53.1) % [place] % (Auto) 4.0 L (5.3-12.2) % Eos % (Auto) 0.4 L (0.8-7.0) Baso % (Auto) 0.2 (0.1-1.2) % Neut # (Auto) 6.14 H (1.78-5.38) K/mm3 Lymph # (Auto) 21.83 H (1.32-3.57) K/mm3 [place] # (Auto) 1.18 H (0.30-0.82) K/mm3 Eos # (Auto) 0.12 (0.04-0.54) K/mm3 Baso # (Auto) 0.06 (0.01-0.08) K/mm3 Manual Slide Review Abnormal smear Sodium 140 (136-145) mEq/L Potassium 4.0 (3.5-5.1) mEq/L Chloride 104 (98-107) mEq/L Carbon Dioxide 24 (21-32) mEq/L Anion Gap 16.0 H (5-15) BUN 18 (7-18) mg/dL Creatinine 1.7 H (0.7-1.3) mg/dL Est Cr Clr Drug Dosing 36.14 mL/min Estimated GFR (MDRD) 39 (>60) mL/min BUN/Creatinine Ratio 10.6 L (14-18) Glucose 127 H (83-115) mg/dL Calcium 8.9 (8.5-10.1) mg/dL Total Bilirubin 1.0 (0.2-1.0) mg/dL AST 25 (15-37) U/L ALT 41 (16-63) U/L Alkaline Phosphatase 114 (46-116) U/L Troponin I 0.075 H* (0.00-0.056) ng/mL NT-Pro-B Natriuret Pep 758 H (0-450) pg/mL Total Protein 7.0 (6.4-8.2) g/dl Albumin 4.1 (3.4-5.0) g/dl Globulin 2.9 gm/dL Albumin/Globulin Ratio 1.4 (1-2) Free T4 (0.76-1.46) ng/dL TSH 3rd Generation (0.358-3.74) uIU/mL 08/02/20 08/02/20 Range/Units 17:57 20:11 WBC (4.23-9.07) K/mm3 RBC (4.63-6.08) M/mm3 Hgb (13.7-17.5) gm/dl Hct (40.1-51.0) % MCV (79.0-92.2) fl MCH (25.7-32.2) pg MCHC (32.2-35.5) g/dl RDW Std Deviation (35.1-43.9) fL Plt Count (163-337) K/mm3 MPV (9.4-12.3) fl Neut % (Auto) (34.0-67.9) % Lymph % (Auto) (21.8-53.1) % [place] % (Auto) (5.3-12.2) % Eos % (Auto) (0.8-7.0) Baso % (Auto) (0.1-1.2) % Neut # (Auto) (1.78-5.38) K/mm3 Lymph # (Auto) (1.32-3.57) K/mm3 [place] # (Auto) (0.30-0.82) K/mm3 Eos # (Auto) (0.04-0.54) K/mm3 Baso # (Auto) (0.01-0.08) K/mm3 Manual Slide Review Sodium (136-145) mEq/L Potassium (3.5-5.1) mEq/L Chloride (98-107) mEq/L Carbon Dioxide (21-32) mEq/L Anion Gap (5-15) BUN (7-18) mg/dL Creatinine (0.7-1.3) mg/dL Est Cr Clr Drug Dosing mL/min Estimated GFR (MDRD) (>60) mL/min BUN/Creatinine Ratio (14-18) Glucose (83-115) mg/dL Calcium (8.5-10.1) mg/dL Total Bilirubin (0.2-1.0) mg/dL AST (15-37) U/L ALT (16-63) U/L Alkaline Phosphatase (46-116) U/L Troponin I 0.070 H* (0.00-0.056) ng/mL NT-Pro-B Natriuret Pep (0-450) pg/mL Total Protein (6.4-8.2) g/dl Albumin (3.4-5.0) g/dl Globulin gm/dL Albumin/Globulin Ratio (1-2) Free T4 1.06 (0.76-1.46) ng/dL TSH 3rd Generation 3.760 H (0.358-3.74) uIU/mL Meds: Medications Discontinued Medications Generic Name Dose Route Start Last Admin Trade Name Freq PRN Reason Stop Dose Admin Amlodipine Besylate 5 mg 08/02/20 19:48 08/02/20 20:18 Amlodipine 5 Mg Tab PO 08/02/20 19:49 5 mg ONETIME ONE Administration Labetalol HCl 10 mg 08/02/20 18:54 08/02/20 19:05 Labetalol 100 Mg/20 Ml Mdv IVPUSH 08/02/20 18:55 10 mg ONETIME ONE Administration Protocol - Re-Assessments/Exams Free Text/Narrative Re-Assessment/Exam: Patient is an 85-year-old male presenting to the emergency department with complaints of his blood pressure being higher than it normally is. States his normal blood pressures 140s over 80s and recently has been 170s over 100. He has had no chest pain, shortness of breath, headaches, or dizziness. Blood pressure on triage was 178/95. We will monitor his blood pressure. I have ordered work-up including CBC, CMP, troponin, EKG, two-view chest x-ray. 08/02/20 1845 Hematology was significant for WBC elevated at 29.39. Patient does have a history of CLL that he is currently monitoring and is receiving no treatment for. Anion gap is 16.0, creatinine 1.7, troponin came back elevated at 0.075. Patient continues to deny any chest pain. I have added on a proBNP, free T4, TSH. I will give labetalol 10 mg IV. Plan will be to repeat troponin in 2 hours and then consult cardiology. EKG shows some subtle ST depression in V3 through V6 which is nondiagnostic of acute ischemia. 08/02/20 21:13 Blood pressure did come down to 140/92 after labetalol. His heart rate was in the low 60s after this. I ordered amlodipine 5 mg p.o. to be given. Repeat troponin came back at 0.070 which is down from the original draw. Patient has had no chest pain or any other concerning complaints since he has been here. Case was discussed with the boilermaker pipe fitter on-call at [facility] in [place], Dr. Ren. He did not feel that the patient needs to be transferred this evening, however he would like him to follow-up with him in the clinic as an outpatient. He stated that his nurse will contact him tomorrow morning to set up an appointment. Departure - Departure Time of Disposition: 21:15 Disposition: Home, Self-Care 01 Condition: Good Clinical Impression: Elevated blood pressure reading, Elevated troponin Prescriptions: amLODIPine [Norvasc] 5 mg PO DAILY #30 tab Instructions: Hypertension, Adult Referrals: Jennifer Duffy NP [Primary Care Provider] - Gabino Ren MD [Ordering Only Provider] - Forms: ED Department Discharge Additional Instructions: You were seen in the emergency department today for elevated blood pressure over the last few days. Work-up included blood work, EKG, chest x-ray. Your blood work did show that your troponin (cardiac enzyme) was slightly elevated. It was rechecked 2 hours later and it did come down from the initial reading but was still slightly above normal. You denied any chest pain or shortness of breath throughout your stay or prior. While in the ER, you received a small dose of IV labetalol as well as a first dose of amlodipine for blood pressure. Your case was discussed with the boilermaker pipe fitter on-call at [facility] in [place], Dr. Ren. He did not feel it was necessary to transfer you this evening for evaluation, however he does want to see you in the clinic in follow-up. He verbalized that his nurse will call you in the morning to set up an appointment. If you not hear from her by afternoon, recommend that you call his office to set up a follow-up. The number to schedule with him as listed below. A prescription for amlodipine 5 mg has been sent to [facility]. Begin taking this medication first thing tomorrow morning in addition to your irbesartan that you are currently prescribed. If you should experience any worsening symptoms such as further increase in your blood pressure or onset of chest pain, shortness of breath, or any other concerning symptoms, you should return to the emergency department for reevaluation. Sepsis Event Note (ED) - Evaluation Sepsis Screening Result: No Definite Risk
[2020-08-02 21:20] VITALS: BP 157/95; PULSE 59
--- NOTE | 2020-08-03 10:13 | CR ---
Chest: 2 views of the chest were obtained. Comparison: Prior chest x-ray of 09/15/19. Heart size is normal. Tortuous thoracic aorta is seen. Lungs are clear with no acute parenchymal change. Bony structures appear within normal limits for the patient's age. Impression: 1. Nothing acute is appreciated on 2 view chest x-ray. Diagnostic code #2
== END 2020-08-02 21:30 | disposition home or self-care (01) ==
LOC: JD.ED 16:40
DX: I10 Essential (primary) hypertension (principal); N40.0 Benign prostatic hyperplasia without lower urinary tract symptoms; R79.89 Other specified abnormal findings of blood chemistry; E11.9 Type 2 diabetes mellitus without complications; Z87.891 Personal history of nicotine dependence
CPT/HCPCS: 36415; 71046; 80053; 83880; 84439; 84443; 84484; 85025; 93005; 96374; 99284; A9270; J3490; 99283

== ENCOUNTER 2021-11-23 20:57 | Emergency (ER) | payer MEDICARE, BC ==
[2021-11-23 21:33] VITALS: BP 200/86; PULSE 53
[2021-11-23] MEDS ORDERED: HYDROmorphone 0.5 MG/0.5 ML Syringe IVPUSH ONE (22:25)
[2021-11-23] MEDS ORDERED: Ondansetron 4 MG/2 ML SDV IVPUSH ONE (22:25)
== END 2021-11-23 23:56 | disposition home or self-care (01) ==
LOC: JD.ED 20:57
DX: N20.1 Calculus of ureter (principal); I10 Essential (primary) hypertension; E11.9 Type 2 diabetes mellitus without complications; Z79.899 Other long term (current) drug therapy; Z87.891 Personal history of nicotine dependence
CPT/HCPCS: 74176; 81001; 96374; 96375; 99284; J1170; J2405

== ENCOUNTER → 2023-01-25 | Day surgery (SDC) | payer MEDICARE, BC ==
[2023-01-25] MEDS: Brimonidine 0.2% Ophth Soln 5 ML Bottle EYELF SCH ×2 (14:10→15:17)
[2023-01-25] MEDS: Phenylephrine 2.5% Ophth Soln 2 ML Bot EYELF SCH ×3 (14:15→14:35)
[2023-01-25] MEDS: Tropicamide 1% Ophth Soln 3 ML Bottle EYELF SCH ×3 (14:20→14:40)
== END ==
LOC: JD.SDS 14:53
PROVIDERS: ATTEND Ophthalmology
DX: H26.492 Other secondary cataract, left eye (principal); H21.542 Posterior synechiae (iris), left eye; H35.363 Drusen (degenerative) of macula, bilateral; H35.3131 Nonexudative age-related macular degeneration, bilateral, early dry stage; H35.373 Puckering of macula, bilateral; H16.103 Unspecified superficial keratitis, bilateral; H16.223 Keratoconjunctivitis sicca, not specified as Sjogren's, bilateral; N40.0 Benign prostatic hyperplasia without lower urinary tract symptoms; I10 Essential (primary) hypertension; Z96.1 Presence of intraocular lens; Z98.41 Cataract extraction status, right eye; Z98.42 Cataract extraction status, left eye; Z87.891 Personal history of nicotine dependence; Z79.899 Other long term (current) drug therapy
CPT/HCPCS: 66821; A9270